=== PATIENT | female | born 1950 | race Caucasian/White ===

== ENCOUNTER 2019-03-11 00:59 | Outpatient (CLI) | payer MEDICARE, BC, SELFPAY ==
[2019-03-12 06:18] LABS: Hemoglobin A1C 5.8 % (4.5-6.2)
== END 2019-03-11 01:19 ==
DX: E78.5 Hyperlipidemia, unspecified (principal); I10 Essential (primary) hypertension; R73.09 Other abnormal glucose; R01.1 Cardiac murmur, unspecified
CPT/HCPCS: 36415; 83036

== ENCOUNTER 2019-03-21 16:01 | Outpatient (CLI) | payer MEDICARE, BC, SELFPAY ==
--- NOTE | 2019-03-21 15:28 | DI.RAD_ITS ---
SYMPTOMS/DIAGNOSIS: UPPER RESPIRATORY INFECTION, J06.9, COUGH, R05, LOW-GRADE FEVER, DECREASED AIRWAY CHEST X-RAY, PA AND LATERAL: No priors. The heart size and pulmonary vasculature are within normal limits. The lungs are clear. No effusions or pneumothoraces are identified. Age- related degenerative changes are seen in the spine. IMPRESSION: No acute pulmonary process.
== END 2019-03-21 16:21 ==
DX: J06.9 Acute upper respiratory infection, unspecified (principal); R05 Cough; R50.9 Fever, unspecified
CPT/HCPCS: 71046

== ENCOUNTER 2020-08-22 05:36 | Outpatient (CLI) | payer MEDICARE, BC, SELFPAY ==
[2020-08-22 13:33] LABS: CREATININE 0.79 mg/dL (0.55-1.02); Calculated LDL 92 mg/dL (<100); Cholesterol 192 mg/dL (<200); HDL Cholesterol 84 mg/dL (40-60); Potassium 4.2 mmol/L (3.5-5.1); Triglyceride 81 mg/dL (<150)
== END 2020-08-22 05:56 ==
PROVIDERS: Nurse Practitioner
DX: I10 Essential (primary) hypertension (principal); E78.5 Hyperlipidemia, unspecified
CPT/HCPCS: 36415; 80061; 82565; 84132

== ENCOUNTER 2020-12-30 09:46 | Observation (INO) | payer MEDICARE, BC, SELFPAY ==
[2020-12-30] VITALS (23 sets, daily range): BP systolic 116–159; BP diastolic 69–94; PULSE 62–92; RESP 15–31; TEMP 36.6–37.5; O2SAT 95–99
--- NOTE | 2020-12-30 09:45 | RT.EKG_ITS ---
APPROVED REPORT Exam: Resting ECG Patient Location: E HR:79 bpm ECG Measurements Heart Rate 79 AXIS OH 151 P 59 QRSd 93 QRS -32 QT 400 T 29 QTc 460 Conclusion Sinus rhythm...normal P axis, V-rate 60- 99 Left axis deviation...QRS axis (-30,-90) sinus rhythm at 79, left axis, nonspecific ST changes, no prior for comparison, no STEMI, nondiagnost ic EKG
--- NOTE | 2020-12-30 10:21 | DI.RAD_ITS ---
EXAM: XR PORTABLE CHEST AP CLINICAL HISTORY: chest pain TECHNIQUE: 2D digital imaging was performed. COMPARISON: No exams were available for comparison FINDINGS: MEDIASTINUM: Normal. HEART: Normal. PULMONARY VASCULATURE: Normal. LUNGS: Clear. PLEURAL SPACE: No pleural effusion or pneumothorax. BONE:Within normal limits for the patient's age. OTHER FINDINGS:Normal. IMPRESSION: No acute pulmonary findings. DATA REPOSITORY: RADIATION DOSE DELIVERED:
--- NOTE | 2020-12-30 10:25 | ED.GENADUL_ITS ---
Discharge Plan Disposition Condition: Stable Discharge Details Chief Complaint: Chest Pain Admit Date/Time: 12/30/20 14:25 Admit Provider: Lyndsay Weiner Attending Provider: Lyndsay Weiner Primary Care Provider: Birdie العلي ED Provider: Jacklyn Grimaldo Discharge Instructions Activity:: Activity as Tolerated Equipment/Supplies:: cardevent recorder 30 day Diet:: heart healthy Discharge Orders Discharge Orders: Discharge Order (Routine); Ordered 12/31/20 Ordered By: Cindy Dorantes Discharge Data Discharge Date/Time-TO BE ENTERED AT DEPARTURE: 12/30/20 14:59 Medical Decision Making Laurie Medina is a 70-year-old woman with a history of hyperlipidemia, hypertension, heart murmur who presented to the emergency department with chest pain that began at 330 this morning. On exam patient is well and nontoxic- appearing. 3/6 systolic murmur present, otherwise benign cardiopulmonary exam. Concern for acute coronary syndrome versus gastritis/GERD/other GI etiology, other. Low likelihood for pulmonary embolism. Exam/history at this time is not consistent with acute aortic pathology, sepsis, acute emergent intra-abdominal process. EKG shows nonspecific changes, no prior present for comparison, no STEMI. Plan for chest x-ray, screening labs, telemetry. Will monitor and reas sess. Labs reviewed and non-diagnostic. CXR negative. Will repeat trop. Repeat trop neg. Given risk factors, nature of pain, presence of significant heart murmur without apparent recent echo, plan for admission for further eval. Pt is amenable to plan. She remains asymptomatic. Clinical Impression: chest pain Disposition: [facility] in Medical Records Medical records reviewed: Yes I reviewed the patient's medical records. Imaging Data Radiologic Study: Attestation: I personally reviewed and interpreted this imaging study as follows: Radiologist's impression: EXAM: XR PORTABLE CHEST AP CLINICAL HISTORY: chest pain TECHNIQUE: 2D digital imaging was performed. COMPARISON: No exams were available for comparison FINDINGS: MEDIASTINUM: Normal. HEART: Normal. PULMONARY VASCULATURE: Normal. LUNGS: Clear. PLEURAL SPACE: No pleural effusion or pneumothorax. BONE:Within normal limits for the patient's age. OTHER FINDINGS:Normal. IMPRESSION: No acute pulmonary findings. Lab Data Lab results reviewed: Yes I reviewed the patient's lab results. ECG Data Attestation: I personally reviewed and interpreted this ECG (s) as follows: Interpretation: EKG shows sinus rhythm at 79, left axis, nonspecific ST changes, no prior for comparison, no STEMI, nondiagnostic EKG HPI General Mode of arrival: ambulatory . Date/Time Provider Initiated Documentation: 12/30/20 09:56 . Limitations to Documentation: no limitations . Information obtained by: patient, RN notes reviewed and old records reviewed . HPI Narrative: Laurie Weston is a 70-year-old woman with a history of hyperlipidemia, hypertension, heart murmur presenting to the emergency department with chest pain. Patient reports that she woke up at 330 this morning with a pressure sensation in her central chest. Patient reports that she got up out of bed and walk around and had improvement in her pain. Patient reports that she was able to go back to sleep. When she woke up this morning she had some continued pressure sensation in her central chest, also had some diarrhea, and had some nausea. Patient reports that symptoms have resolved and she feels at baseline right now. Patient reports that she has had no symptoms similar to this in the past including in the recent preceding days. Was previously in her usual state of health. She denies fever, cough, shortness of breath, vomiting, numbness, weakness. She has had no exertional symptoms. No recent change in appetite. Related Data Home Medications Medication Instructions Recorded Confirmed cholecalciferol (vitamin D3) 1,000 unit PO DAILY 04/19/13 12/30/20 loratadine 10 mg tablet 10 mg PO DAILY PRN 03/20/19 12/30/20 acyclovir 400 mg tablet 400 mg PO BID PRN #20 tab-cap 11/28/20 12/30/20 lisinopril 10 1 tab PO DAILY #90 tab-cap 11/28/20 12/30/20 mg-hydrochlorothiazide 12.5 mg tablet pravastatin 40 mg tablet 40 mg PO HS #90 tab-cap 11/28/20 12/30/20 sertraline 50 mg tablet 50 mg PO DAILY #30 tab 11/28/20 12/30/20 Previous Rx's Medication Instructions Recorded acyclovir 400 mg tablet 400 mg PO BID PRN #20 tab-cap 11/28/20 lisinopril 10 1 tab PO DAILY #90 tab-cap 11/28/20 mg-hydrochlorothiazide 12.5 mg tablet pravastatin 40 mg tablet 40 mg PO HS #90 tab-cap 11/28/20 sertraline 50 mg tablet 50 mg PO DAILY #30 tab 11/28/20 Allergies Allergy/AdvReac Type Severity Reaction Status Date / Time No Known Allergies Allergy Verified 12/30/20 09:58 General Stated Complaint: Chest Pain JOSEFA: 2 Review of Systems Narrative: Constitutional: denies fevers Eyes: denies eye pain ENT: denies ear pain, dental pain, sore throat Cardiovascular: denies edema, reports chest pain Respiratory: denies SOB, cough GI: denies abdominal pain, vomiting, reports nausea, diarrhea : denies flank pain MSK: denies back pain, neck pain, arthralgias, myalgias Skin: denies rash Neuro: denies headaches, numbness, weakness [facility] Medical History (Updated 12/31/20 @ 12:45 by Cindy Dorantes NP) Abnormal auditory perception (05/23/15) Depression with anxiety Encounter for annual physical exam (Unknown) Essential hypertension (10/16/13) Heart murmur (10/17/13) [place] [facility] [place] Herpes simplex oral Hyperlipidemia (10/10/12) Lipoma of back (11/01/14) scapula left, mri 2006 Presbycusis, bilateral (11/05/16) Skin lesion of neck Surgical History Bilateral salpingectomy with oophorectomy Endometrial Biopsy Fracture, Open Treatment RIGHT ANKLE Tooth extraction Margarito Forbes DDS tooth and bone removal 07/01/17 Family History Mother , AGE 66 Breast cancer Father , AGE 85 Diabetes Heart disease Sister No problems noted. Brother No problems noted. Son No problems noted. Maternal Grandfather No problems noted. Paternal Grandfather No problems noted. Maternal Grandfather No problems noted. Paternal Grandfather No problems noted. 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 Pets and animals: Yes (grand dogs stay occasionally) Pets and animals: dog(s) Sexually active: No Do you think of yourself as: straight/heterosexual Current gender identity: female What is your relationship status?: How often do you talk on the phone with friends or family?: three or more times per week How often do you get together with friends or relatives?: once per week How often do you attend caodaism or quaker services?: decline to answer Do you belong to any clubs or organized social groups?: no Panel score (0-1 are the most socially isolated patients): 2 What type of physical activity do you participate in: none Beba/Jew: None Special beba needs: No Seatbelt use: always Drive intox or ride w/intox pick up and delivery driver: No Do you feel safe at home: Yes Do you feel safe in your relationship?: Yes Victim of physical abuse: No Victim of emotional abuse: Yes Victim of sexual abuse: No Would you like helpful sources: Yes Exam Narrative Exam Narrative: Constitutional: well and [id number], pleasant, conversing normally HENT: head atraumatic/normocephalic/normal inspection, mucous membranes moist Eyes: conjunctiva normal, sclera normal, pupils 3mm b/l Neck: no stridor, normal ROM, trachea midline Chest: normal inspection, no tenderness to palpation Resp: normal work of breathing, LCTAB Cardio: normal rate, normal rhythm, 3/6 systolic murmur present GI: abdomen soft, non-tender, non-distended Back: normal inspection, no rash Skin: warm, dry, normal color, no rash Neuro: alert, not altered, grossly non-focal, normal tone Ext: no edema, no posterior calf tenderness to palpation Psych: normal mood, normal affect, normal behavior Course Vital Signs Vital signs: Vital Signs Temperature 36.7 C 12/30/20 09:51 Pulse 89 12/30/20 09:51 Respiratory Rate 18 12/30/20 09:51 Blood Pressure 159/94 H 12/30/20 09:51 Pulse Oximetry 96 12/30/20 09:51 Temperature 36.7 C 12/30/20 09:51 Temperature Source Tympanic 12/30/20 09:51 Pulse 89 12/30/20 09:51 Respiratory Rate 18 12/30/20 09:59 Respiratory Effort Non-Labored 12/30/20 09:59 Respiratory Depth Normal 12/30/20 09:59 Respiratory Pattern Normal 12/30/20 09:59 Blood Pressure 159/94 H 12/30/20 09:51 Blood Pressure Position Supine 12/30/20 09:51 Pulse Oximetry 96 12/30/20 09:51 Oxygen Delivery Method Room Air 12/30/20 09:51 Oxygen Flow Rate 0 12/30/20 09:51
[2020-12-30 10:41] LABS: Abs Immature Grans 0.05 10^3/uL (0.0-0.06); Absolute Basophil Count 0.05 10^3/uL (0.0-0.2); Absolute Lymphocyte Count 0.64 10^3/uL (1.2-3.4); Basophils % 0.3; Eosinophils % 1.1; HGB 13.6 g/dL (11.2-15.7); Immature Grans % 0.3; Lymphocytes % 4.1; MCH 30.9 pg (27.0-33.0); MCHC 33.2 % (32.0-36.0); MCV 93.2 fL (80-95); MPV 9.9 fL (8.0-11.0); Monocytes % 4.1; Neutrophils % 90.1; Nucleated RBC 0 %; Platelet Count 282 10^3/uL (130-400); RDW 12.2 % (11.7-14.6); RDW-SD 42.5 fL; WBC 15.72 10^3/uL (4.4-10.8)
[2020-12-30 10:43] LABS: Absolute Eosinophil Count 0.17 10^3/uL (0.0-0.7); Absolute Monocyte Count 0.64 10^3/uL (0.1-0.8); Absolute Neutrophil Count 14.16 10^3/uL (1.2-6.7)
[2020-12-30 11:06] LABS: ALT 29 U/L (14-59); AST 23 U/L (15-37); Albumin 3.9 g/dL (3.4-5.0); Alkaline Phosphatase 88 U/L (46-116); Anion Gap 7.8 mmol/L (3-11); BUN 12 mg/dL (7-18); Bilirubin, Total 0.7 mg/dL (0.2-1.0); CO2 30.2 mmol/L (21.0-32.0); CREATININE 0.8 mg/dL (0.55-1.02); Calcium 9.2 mg/dL (8.5-10.1); Chloride 102 mmol/L (98-107); Glucose 127 mg/dL (74-106); Magnesium 2.1 mg/dL (1.8-2.4); NT-proBNP 141 pg/mL (<300); Potassium 3.5 mmol/L (3.5-5.1); Sodium 140 mmol/L (136-145); Total Protein 7.5 g/dL (6.4-8.2); Troponin I < 0.05 ng/mL (<0.06)
[2020-12-30 11:09] LABS: Lipase 377 U/L (73-393)
[2020-12-30 11:10] LABS: D-Dimer 684 ng/mlFEU (<500)
[2020-12-30 14:01] LABS: Troponin I < 0.05 ng/mL (<0.06)
--- NOTE | 2020-12-30 14:38 | DI.US_ITS ---
APPROVED REPORT EXAM: Comprehensive 2D, Doppler, and color-flow Echocardiogram Patient Location: In-Patient Room/Bed: 215 Licensing Registration Examiner: Lorie Lugo RDCS (AE) Indications: Chest pain Other Information Study Quality: Good Conclusion Left Ventricle : The left ventricle is normal size. The left ventricular systolic function is normal. There is normal left ventricular wall thickness. There is normal LV segmental wall motion. LVEF is 55-58%. Right Ventricle : The right ventricle is normal size. The right ventricular systolic function is norm al. The RVSP is 35.7mmHg. Atria : The left atrium size is normal. The right atrium size is normal. Aortic Valve : Aortic valve is calcified. Aortic valve is trileaflet. Severe aortic stenosis. Peak ao rtic valve gradient is 72.6mmHg. Highest mean aortic valve gradient is 43.8mmHg. Calculated ELIZ by th e continuity equation is 1.11cm2. Trace aortic regurgitation. Mitral Valve : The mitral valve is normal in structure. Mild mitral regurgitation. No evidence of teodoro ral valve stenosis. Great Vessels : The aortic root is normal in size. The ascending aorta is mildly dilated. Aortic arch is normal in caliber. IVC is normal in size and collapses >50% with inspiration. There is no prior study available for comparison. Wall motion Left Ventricle The left ventricle is normal size. The left ventricular systolic function is normal. There is normal left ventricular wall thickness. There is normal LV segmental wall motion. The left ventricular diast olic function is normal. There is no ventricular septal defect visualized. LVEF is 55-58%. Right Ventricle The right ventricle is normal size. The right ventricular systolic function is normal. The RVSP is 35 .7mmHg. Atria The left atrium size is normal. The right atrium size is normal. The interatrial septum is intact wit h no evidence for an atrial septal defect. Aortic Valve Aortic valve is calcified. Aortic valve is trileaflet. Severe aortic stenosis. Peak aortic valve grad ient is 72.6mmHg. Highest mean aortic valve gradient is 43.8mmHg. Calculated ELIZ by the continuity eq uation is 1.11cm2. Trace aortic regurgitation. Mitral Valve The mitral valve is normal in structure. No evidence of mitral valve stenosis. Mild mitral regurgitat ion. Tricuspid Valve The tricuspid valve is normal in structure. There is no tricuspid valve stenosis. Trace tricuspid reg urgitation. Pulmonic Valve The pulmonary valve is normal in structure. There is no pulmonic valvular stenosis. Trace pulmonic re gurgitation. Great Vessels The aortic root is normal in size. The ascending aorta is mildly dilated. Aortic arch is normal in ca liber. IVC is normal in size and collapses >50% with inspiration. Pericardium There is no pericardial effusion. 2D Dimensions IVSD d PLAX 0.94 cm F: 0.6-1.0 LV Vol A2C d MOD 83.7 mL LVPW d PLAX 0.93 cm F: 0.6 - 1.0 LV Vol A4C d MOD 91.7 mL LVID d PLAX 4.26 cm F: 3.8 - 5.2 LA vol/ BSA A4C s A-L 21.5 mL/m2 LVDs 2.95 cm F: 2.2 - 3.5 LA Area A4C s MOD 13.78 cm2 Ao Root d 3.23 cm F: 2.7 - 3.3 LV EF A4C MOD 55.5 % RA Area A4C 11.54 cm2 LV EF A2C MOD 58.6 % RA Vol/ BSA A4C s A-L 13.6 mL/m2 LV EF Biplane MOD 57.7 % Ao Asc Diam d 3.47 cm F: 2.3 - 3.1 SV 51.41 mL LV EF Teichholz 57.1 % SV Index 30.37 mL/m2 LVEF (Preciado's) 57.73 % F: 54 - 74 LV Volume 70.83 mL F: 46 - 106 LV Volume Index 41.91 mL/m2 F: 29 - 61 LV Vol Biplane MOD 89.0 mL FS 29.65 % M-Mode TAPSE 1.76 cm (M/F) >1.7 LV Diastology MV E' medial 0.065 (>0.07 m/s) E/A Ratio 0.6 LV E/e MED 9.45 (<14) MV E Vmax 0.62 (0.4-1.3 m/s) MV E' lateral 0.071 (>0.1 m/s) MV A Vmax 1.10 (0.4-1.3 m/s) LV E/e LAT 8.65 (<14) MV E/A Ratio 0.55 MV E/E' medial 9.50 MV E/E' lateral 8.68 Aortic Valve LVOT Area 3.96 cm2 AoV Area Vmax 1.11 cm2 LVOT Vmax 1.20 m/s AoV Area/ BSA (Vmax) 0.66 cm2/m2 LVOT Mean Eliazar. 0.72 m/s ELIZ Mean Eliazar. 0.90 cm2 LVOT Peak Grad 5.7 mmHg ELIZ Mean Eliazar. Index 0.53 cm2/m2 LVOT Mean Grad 2.5 mmHg AR DT 1204 msec LVOT VTI 0.230 m AR PHT 349 msec LVOT Diam s 2.20 cm AoV Vmax 4.26 m/s Velocity Ratio 0.28 AoV Mean Eliazar. 3.16 m/s AoV Peak Grad 72.6 mmHg LVOT SV 91.03 mL AoV Mean Grad 43.8 mmHg AoV VTI 0.877 m AoV Area VTI 1.04 cm2 AoV Area/ BSA (VTI) 0.61 cm/m2 Mitral Valve MV DT 271 (160-240 msec) MV PHT 79 msec MV Area PHT 2.80 cm2 MV VTI 0.249 m MV Area VTI 3.66 (4.0-6.0 cm2) Pulmonary Valve PV Vmax 1.32 (0.5-1.5 m/s) RVOT Peak Gr. 1.68 mmHg PV Peak Grad 7.0 mmHg RVOT Mean Gr. 0.80 mmHg PV Mean Grad 3.3 mmHg RVOT VTI 0.132 m PV VTI 0.233 m RVOT Vmax 0.65 m/s Tricuspid Valve TR Peak Grad 32.7 mmHg TR Vmax 2.86 m/s RA Pressure 3.00 mmHg RVSP (TR) 35.7 mmHg
[2020-12-30] MEDS: Enoxaparin 40 MG/0.4 ML SYR SC (16:03)
[2020-12-30] MEDS: Normal Saline Flush 10 ML SYR IVP (16:03)
[2020-12-30] MEDS: Normal Saline 1,000 ML 100 ML IV (16:03)
--- NOTE | 2020-12-30 16:51 | HPE_ITS ---
Date of service: 12/30/20 Time of Service: 16:51 Assessment and Plan Assessment and plan (1) Chest pain: Start date: 12/30/20 Start time: 17:07 Status: Acute Assessment and plan: Onset at 3 am, ambulatory with CP, that stopped then continued. It was relieved upon arrival to ED. EKG without ST elevation ectopic beats, trops negative. she did receive echo today Wall motion Left Ventricle The left ventricle is normal size. The left ventricular systolic function is normal. The left ventricular ejection fraction is within the normal range. There is normal left ventricular wall thickness. There is normal LV segmental wall motion. There is no ventricular septal defect visualized. LVEF is 55-58%. Right Ventricle The right ventricle is normal size. The right ventricular systolic function is normal. The RVSP is 35.7mmHg. Atria The left atrium size is normal. The right atrium size is normal. The interatrial septum is intact with no evidence for an atrial septal defect. Aortic Valve Aortic valve is calcified. Aortic valve is trileaflet. Severe aortic stenosis. Peak aortic valve gradient is 72.6mmHg. Highest mean aortic valve gradient is 43.8mmHg. Calculated ELIZ by the continuity equation is 1.11cm2. Trace aortic regurgitation. Mitral Valve The mitral valve is normal in structure. No evidence of mitral valve stenosis. Mild mitral regurgitation. Tricuspid Valve The tricuspid valve is normal in structure. There is no tricuspid valve stenosis. Trace tricuspid regurgitation. Pulmonic Valve The pulmonary valve is normal in structure. There is no pulmonic valvular stenosis. Trace pulmonic regurgitation. Great Vessels The aortic root is normal in size. The ascending aorta is mildly dilated. Aortic arch is normal in caliber. IVC is normal in size and collapses >50% with inspiration. Pericardium There is no pericardial effusion On telemetry NPI stress for tomorrow Qualifiers: Chest pain type: unspecified Qualified Code(s): R07.9 - Chest pain, unspecified (2) Leukocytosis: Start date: 12/30/20 Start time: 17:09 Status: Acute Assessment and plan: Unknown source at this time. CXR without any abnormality. No u/a done in ED. u/a pending at this time. monitor repeat labs and treat if UTI. History of Present Illness History of Present Illness Chief Complaint: Chest pain, leukocytosis Narrative: 70-year-old woman with a history of hyperlipidemia, hypertension, heart murmur who presented to the emergency department with chest pain that began at 330 this morning with a pressure sensation in her central chest. She got up out of bed and walked around with improvement in her pain after that she was able to go back to sleep. When she woke up this morning she had some continued pressure sensation in her central chest, also had some diarrhea, and had some nausea. Since then symptoms have resolved and she feels at baseline right now. Patient reports that she has had no symptoms similar to this in the past including in the recent preceding days and she has been in her previously usual state of health. She denies fever, cough, shortness of breath, vomiting, numbness, weakness. She has had no exertional symptoms. No recent change in appetite no change in taste or smell. Labs in ED remarkable for WBC 15.72, ANC 14.62, otherwise unremarkable. EKG with SR no eptopic beats or ST elevation. Troponins negative. CXR with no acute findings. U/a not done in ED, will order one to r/o uti. She was asked to be admitted for further management. She is being to m/s obs with teley for further management. She will have an echo done today Wall motion Left Ventricle The left ventricle is normal size. The left ventricular systolic function is normal. The left ventricular ejection fraction is within the normal range. There is normal left ventricular wall thickness. There is normal LV segmental wall motion. There is no ventricular septal defect visualized. LVEF is 55-58%. Right Ventricle The right ventricle is normal size. The right ventricular systolic function is normal. The RVSP is 35.7mmHg. Atria The left atrium size is normal. The right atrium size is normal. The interatrial septum is intact with no evidence for an atrial septal defect. Aortic Valve Aortic valve is calcified. Aortic valve is trileaflet. Severe aortic stenosis. Peak aortic valve gradient is 72.6mmHg. Highest mean aortic valve gradient is 43.8mmHg. Calculated ELIZ by the continuity equation is 1.11cm2. Trace aortic regurgitation. Mitral Valve The mitral valve is normal in structure. No evidence of mitral valve stenosis. Mild mitral regurgitation. Tricuspid Valve The tricuspid valve is normal in structure. There is no tricuspid valve stenosis. Trace tricuspid regurgitation. Pulmonic Valve The pulmonary valve is normal in structure. There is no pulmonic valvular st enosis. Trace pulmonic regurgitation. Great Vessels The aortic root is normal in size. The ascending aorta is mildly dilated. Aortic arch is normal in caliber. IVC is normal in size and collapses >50% with inspiration. Pericardium There is no pericardial effusion.. stress for tomorrow. Will given IV hydration over night. 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 Brother No problems noted. Son No problems noted. Maternal Grandfather No problems noted. Paternal Grandfather No problems noted. Maternal Grandfather No problems noted. Paternal Grandfather No problems noted. Social History Smoking/Tobacco Use Status: Never Second Hand Exposure: Yes Smoking risk assessment performed?: Yes Alcohol Intake: never Drug use: Never Substance use type: does not use Counseling given: No Counseling provided: none Caregiver/Support person: No Household members: spouse Housing: house Communication Needs: Hard of Hearing Do you need help understanding health information?: Rarely current occupation: PART-TIME [employer] Pets and animals: Yes (grand dogs stay occasionally) Pets and animals: dog(s) Sexually active: No Do you think of yourself as: straight/heterosexual Current gender identity: female What is your relationship status?: How often do you talk on the phone with friends or family?: three or more times per week How often do you get together with friends or relatives?: once per week How often do you attend restorationism or scientology services?: decline to answer Do you belong to any clubs or organized social groups?: no Panel score (0-1 are the most socially isolated patients): 2 What type of physical activity do you participate in: none Beba/Yazidi: None Special beba needs: No Seatbelt use: always Drive intox or ride w/intox shuttle truck driver: No Do you feel safe at home: Yes Do you feel safe in your relationship?: Yes Victim of physical abuse: No Victim of emotional abuse: Yes Victim of sexual abuse: No Would you like helpful sources: Yes Meds Home Medications and Allergies Home Medications Medication Instructions Recorded Confirmed Type cholecalciferol (vitamin D3) 1,000 unit PO DAILY 04/19/13 12/30/20 History loratadine 10 mg tablet 10 mg PO DAILY PRN 03/20/19 12/30/20 History acyclovir 400 mg tablet 400 mg PO BID PRN #20 tab-cap 11/28/20 12/30/20 Rx lisinopril 10 1 tab PO DAILY #90 tab-cap 11/28/20 12/30/20 Rx mg-hydrochlorothiazide 12.5 mg tablet pravastatin 40 mg tablet 40 mg PO HS #90 tab-cap 11/28/20 12/30/20 Rx sertraline 50 mg tablet 50 mg PO DAILY #30 tab 11/28/20 12/30/20 Rx Allergies Allergy/AdvReac Type Severity Reaction Status Date / Time No Known Allergies Allergy Verified 12/30/20 09:58 Exam Narrative Exam Narrative: Constitutional: well and [id number], pleasant, conversing normally HENT: head atraumatic/normocephalic/normal inspection, mucous membranes moist Eyes: conjunctiva normal, sclera normal, pupils 3mm b/l Neck: no stridor, normal ROM, trachea midline Chest: normal inspection, no tenderness to palpation Resp: normal work of breathing, LCTAB Cardio: normal rate, normal rhythm, 3/6 systolic murmur present GI: abdomen soft, non-tender, non-distended Back: normal inspection, no rash Skin: warm, dry, normal color, no rash Neuro: alert, not altered, grossly non-focal, normal tone Ext: no edema, no posterior calf tenderness to palpation Psych: normal mood, normal affect, normal behavior Results Labs Result diagrams: 12/30/20 10:00 12/30/20 10:00 Labs: Laboratory Results - last 24 hr 12/30/20 12/30/20 12/30/20 10:00 10:00 10:00 WBC 15.72 H RBC 4.40 Hgb 13.6 Hct 41.0 MCV 93.2 MCH 30.9 MCHC 33.2 RDW 12.2 Plt Count 282 MPV 9.9 Immature Gran % 0.3 Neutrophils % 90.1 Lymphocytes % 4.1 Monocytes % 4.1 Eosinophils % 1.1 Basophils % 0.3 Nucleated RBC % 0 Absolute Neutrophils 14.16 H Absolute Lymphocytes 0.64 L Absolute Monocytes 0.64 Absolute Eosinophils 0.17 Absolute Basophils 0.05 D-Dimer 684 H Sodium 140 Potassium 3.5 Chloride 102 Carbon Dioxide 30.2 Anion Gap 7.8 BUN 12 Creatinine 0.8 Estimated GFR/1.73 m2 >= 60.00 Glucose 127 H Calcium 9.2 Magnesium 2.1 Total Bilirubin 0.7 AST 23 ALT 29 Alkaline Phosphatase 88 Troponin I < 0.05 NT-Pro-B Natriuret Pep 141 Total Protein 7.5 Albumin 3.9 Lipase SARS-CoV-2 (PCR) Nasopharyn COVID-19 PCR Ref Test Perform Site 12/30/20 12/30/20 12/30/20 10:00 13:20 14:33 WBC RBC Hgb Hct MCV MCH MCHC RDW Plt Count MPV Immature Gran % Neutrophils % Lymphocytes % Monocytes % Eosinophils % Basophils % Nucleated RBC % Absolute Neutrophils Absolute Lymphocytes Absolute Monocytes Absolute Eosinophils Absolute Basophils D-Dimer Sodium Potassium Chloride Carbon Dioxide Anion Gap BUN Creatinine Estimated GFR/1.73 m2 Glucose Calcium Magnesium Total Bilirubin AST ALT Alkaline Phosphatase Troponin I < 0.05 NT-Pro-B Natriuret Pep Total Protein Albumin Lipase 377 SARS-CoV-2 (PCR) Cancelled Nasopharyn COVID-19 PCR Cancelled Ref Test Perform Site Cancelled Last Vital Signs Temp 37.5 C 12/30/20 15:57 Pulse 75 12/30/20 15:57 Resp 18 12/30/20 15:57 BP 132/85 12/30/20 15:57 Pulse Ox 97 12/30/20 15:57 COVID-19 Screening Have you, or household traveled for leisure in last 14 days?: No Had IN PERSON contact w/suspected or confirmed C-19 person: No
[2020-12-30 17:26] LABS: C-Reactive Protein 0.92 mg/dL (0.0-0.3)
[2020-12-30 17:45] LABS: Procalcitonin < 0.1 ng/mL
[2020-12-30 18:29] LABS: Bilirubin Negative (Negative); Blood Trace-intact (Negative); Clarity Clear (Clear); Glucose Negative (Negative); Ketones Negative (Negative); Leukocyte Esterase Negative (Negative); Nitrite Negative (Negative); Specific Gravity 1.025 (1.005-1.025); Urobilinogen 0.2 EU/dL (Up TO 0.2); pH 8.5 (5-8)
[2020-12-30 18:40] LABS: Bacteria Negative HPF (Negative); C & S Indicated? No; Casts Negative LPF (Negative); Crystals Negative HPF (Negative); Epithelial Cells Few HPF (Negative); Mucus Negative (Negative); RBC 0-2 HPF (0-2)
[2020-12-30 19:55] LABS: Source Nasopharynx
[2020-12-30 20:06] LABS: COVID-19 PCR Negative (Negative); Influenza A PCR Negative (Negative); Influenza B PCR Negative (Negative); RSV PCR Negative (Negative)
[2020-12-30] MEDS: Pravastatin 40 MG TAB PO (22:06)
[2020-12-31 03:31] VITALS: BP 122/77; PULSE 82; RESP 17; TEMP 36.7; O2SAT 95
[2020-12-31 07:02] VITALS: PULSE 72
[2020-12-31 07:17] LABS: Abs Immature Grans 0.01 10^3/uL (0.0-0.06); Absolute Basophil Count 0.03 10^3/uL (0.0-0.2); Absolute Lymphocyte Count 1.07 10^3/uL (1.2-3.4); Absolute Monocyte Count 0.33 10^3/uL (0.1-0.8); Basophils % 0.4; Eosinophils % 5.6; HCT 41.7 % (36.0-46.0); HGB 13.5 g/dL (11.2-15.7); Immature Grans % 0.1; Lymphocytes % 15.1; MCH 30.2 pg (27.0-33.0); MCHC 32.4 % (32.0-36.0); MCV 93.3 fL (80-95); MPV 9.6 fL (8.0-11.0); Monocytes % 4.6; Neutrophils % 74.2; Nucleated RBC 0 %; Platelet Count 270 10^3/uL (130-400); RBC 4.47 10^6/uL (3.93-5.22); RDW 12.4 % (11.7-14.6); RDW-SD 42.7 fL
[2020-12-31 07:21] LABS: Absolute Neutrophil Count 5.27 10^3/uL (1.2-6.7)
[2020-12-31 07:30] VITALS: BP 136/89; PULSE 71; RESP 15; TEMP 36.4; O2SAT 93
[2020-12-31 07:36] LABS: BUN 11 mg/dL (7-18); CREATININE 0.8 mg/dL (0.55-1.02); Calcium 9.4 mg/dL (8.5-10.1); Calculated LDL 100 mg/dL (<100); Chloride 102 mmol/L (98-107); Cholesterol 213 mg/dL (<200); Glucose 110 mg/dL (74-106); HDL Cholesterol 90 mg/dL (40-60); Potassium 3.5 mmol/L (3.5-5.1); Sodium 140 mmol/L (136-145); Triglyceride 117 mg/dL (<150)
[2020-12-31 08:04] VITALS: BP 149/87; PULSE 77; RESP 18; TEMP 36.9; O2SAT 95
--- NOTE | 2020-12-31 08:52 | INITIAL_ITS ---
- If Service Date Differs Date of service: 12/30/20 Time of Service: 14:02 Care Management Initial Assess REASON FOR HOSPITALIZATION:: Chest pain, leukocytosis PAST MEDICAL HISTORY/PAST SURGICAL HISTORY:: abnormal auditory perception, depression with anxiety, essential hypertension, heart murmur, herpes simplex, hyperlipidemia, lipoma of back, presbycusis bilateral, skin lesion of neck, bilateral salpingectomy with oophrectomy, endometrial biopsy, fracture, tooth extraction PREVIOUS FUNCTIONAL STATUS/SOCIAL/FAMILY SUPPORTS:: Laurie resides in [place] with her , Manav. The couple has one adult son who resides locally and is supportive. Laurie is retired, and independent at baseline in the community. CURRENT FUNCTIONAL STATUS:: Laurie is preparing for discharge. ADVANCE DIRECTIVES:: , Manav as agent, son, Pedrito as alternate. Has patient been provided with info about the portal/API?: Yes Did the patient sign up for the portal?: No CODE STATUS:: Full Code INSURANCE COVERAGE / FINANCIAL ISSUES:: Medicare, BC/BS CURRENT HOME/COMMUNITY SERVICES/EQUIPMENT:: No current services or equipment. PRIMARY CARE PHYSICIAN:: Birdie العلي NP: [facility] POTENTIAL DISCHARGE NEEDS:: Follow up appointments with community based providers, [facility] [place]. PATIENT/FAMILY EDUCATION NEEDS:: Review discharge instructions, discuss Ask Me Three. ANTICIPATED BARRIERS TO DISCHARGE:: None identified at this time. TRANSPORTATION:: Via private vehicle with family. PLAN:: Laurie will return home when ready per MD. She will follow up with her PCP and plan of care as prescribed including [facility] [place].
[2020-12-31] MEDS: Cholecalciferol (Vitamin D3) 1,000 UNIT TAB 1000 UNITS PO (10:20)
[2020-12-31] MEDS: hydroCHLOROthiazide 12.5 MG TAB PO (10:20)
[2020-12-31] MEDS: Lisinopril 10 MG TAB PO (10:21)
[2020-12-31] MEDS: Sertraline 50 MG TAB PO (10:21)
[2020-12-31] MEDS: Omeprazole 20 MG CAPCR PO (10:21)
[2020-12-31] MEDS: Normal Saline Flush 10 ML SYR IVP (10:22)
[2020-12-31 11:21] VITALS: BP 161/93; PULSE 72; RESP 16; TEMP 36.8; O2SAT 98
[2020-12-31 11:40] LABS: Troponin I < 0.05 ng/mL (<0.06)
--- NOTE | 2020-12-31 12:38 | DSE_ITS ---
Date of service: 12/31/20 Time of Service: 12:38 DS: Diagnosis Discharge Diagnosis (1) Chest pain: Status: Acute (2) Leukocytosis: Status: Acute Discharge Plan Disposition Patient Disposition: HOME Condition: Stable Discharge Details Reason For Visit: CHEST PAIN, LEUKOCYTOSIS Admit Date/Time: 12/30/20 14:25 Admit Provider: Lyndsay Weiner Attending Provider: Lyndsay Weiner Primary Care Provider: Birdie العلي Hospital Course Hospital Course: This is a 70-year-old woman with a history of hyperlipidemia, hypertension, heart murmur who presented to the emergency department with chest pain described as a pressure sensation in her central chest. She had improvement in her pain with sitting upright and with ambulation and after that she was able to go back to sleep. When she woke up this morning she had some continued pressure sensation in her central chest, also had some diarrhea, and had some nausea. Her symptoms resolved and she felt at baseline on presentation. Her cardiac work up in the ED was unremarkable, with negative troponin, no EKG changes. She was referred to observation for formal rule out and stress test. Serial troponin remains negative but echocardiogram shows severe aortic stenosis with a peak aortic valve gradient of 72.6mmHg. Cardiology was consulted and recommendations are for valve evaluation which can be done as an outpatient, stress testing discontinued as she will undergo cardiac catheterization accordingly. Also, coincidental finding of microscopic hematuria on UA which should be followed up outpatient by pcp. she had episode of SVT prior to discharge and was discharged on a cardiac event recorder. she will be scheduled to follow up with Dr Arroyo as discussed. discharge plan discussed with DR Weiner Home Meds and New Rx's Prescriptions: Continued acyclovir 400 mg tablet 400 mg PO BID PRN (Reason: cold sores) Qty: 20 RF: 4 lisinopril-hydrochlorothiazide [Zestoretic] 10-12.5 mg tablet 1 tab PO DAILY Qty: 90 RF: 4 pravastatin [Pravachol] 40 mg tablet 40 mg PO HS Qty: 90 RF: 4 sertraline 50 mg tablet 50 mg PO DAILY Qty: 30 RF: 3 cholecalciferol (vitamin D3) 1,000 UNIT capsule 1,000 unit PO DAILY RF: 0 loratadine [Allergy Relief (loratadine)] 10 mg tablet 10 mg PO DAILY PRNRF: 0 Discharge Instructions Instructions: Chest Pain (DC), Aortic Stenosis (DC) Additional Instructions: continue your usual medication as directed wear your event recorder as directed Stand Alone Forms: Nursing Discharge Form Referrals: Benny Cisneros MD [ CONSULTING PHYSICIAN] - 01/23/21 2:00 pm Activity:: Activity as Tolerated Equipment/Supplies:: cardevent recorder 30 day Diet:: heart healthy Discharge Orders Discharge Orders: Discharge Order (Routine); Ordered 12/31/20 Ordered By: Cindy Dorantes Other Ambulatory Orders: Cardiac Event Recorder (Outpt) (ONCE) Location: None Selected Ordered By: Cindy Dorantes Discharge Data Discharge Date/Time-TO BE ENTERED AT DEPARTURE: 12/31/20 14:35 DS: Summary Time Spent with Patient providing and/or coordinating discharge services: Greater than 30 minutes Status at Discharge Functional status at discharge: independent ambulation Overall status at discharge: patient is back to baseline Mental Status: mental status grossly normal Speech and Movement: speech and movement normal Mood: congruent mood Affect: normal affect Exam Const General: cooperative, healthy appearing, comfortable, no acute distress and well groomed Nutritional Appearance: thin Orientation: alert, awake and oriented x3 HENMT Head: normal to inspection, normocephalic and atraumatic Mouth: oral mucosae normal Chest Chest: normal inspection of the chest Resp Auscultation: clear to auscultation bilaterally Cardio Rate: regular rate Rhythm: regular rhythm Heart Sounds: murmur systolic III/ and IV/ GI Inspection: normal to inspection Palpation: soft Skin General skin exam: no rashes or lesions noted Neuro General: patient alert, patient awake, patient oriented x3 and moves all extremities Extrem General: normal to inspection and no pedal edema Psych Mental Status: mental status grossly normal Speech and Movement: speech and movement normal Mood: congruent mood Affect: normal affect DS: Data Vitals/I&O Vitals and I&O: Vital Signs Temperature 36.8 C 12/31/20 11:21 Temperature Source Skin 12/31/20 11:21 Pulse 72 12/31/20 11:21 Pulse Rhythm Regular 12/31/20 04:04 Pulse 87 12/30/20 11:31 Respiratory Rate 16 12/31/20 11:21 Respiratory Effort 12/31/20 08:44 Respiratory Depth Normal 12/31/20 08:44 Respiratory Pattern Normal 12/31/20 08:44 Blood Pressure 161/93 H 12/31/20 11:21 Blood Pressure Mean 95 12/30/20 11:31 Blood Pressure Position Supine 12/30/20 09:51 Pulse Oximetry 98 12/31/20 11:21 Oxygen Delivery Method Room Air 12/31/20 11:21 Oxygen Flow Rate 0 12/31/20 11:21 Pain Level 0 12/31/20 10:22 Intake & Output 12/30/20 12/31/20 12/31/20 23:59 11:59 23:59 Intake Total 193.333 / 193.333 325 / 325 Output Total 750 / 750 Balance 193.333 / 193.333 -425 / -425 Intake: IV 193.333 / 193.333 Oral 0 / 0 325 / 325 Output: Urine 750 / 750 Other: Urine Color Dark Letty Urine Appearance Clear Clear Urine Odor Normal Stool Occult Blood Negative Stool Size Small Stool Characteristics Soft Formed Voiding Methods Toilet Data Completed and Pending Labs on day of discharge: Labs from last 24 hours 12/31/20 12/31/20 12/31/20 06:55 06:55 06:55 WBC 7.10 D RBC 4.47 Hgb 13.5 Hct 41.7 MCV 93.3 MCH 30.2 MCHC 32.4 RDW 12.4 Plt Count 270 MPV 9.6 Immature Gran % 0.1 Neutrophils % 74.2 Lymphocytes % 15.1 Monocytes % 4.6 Eosinophils % 5.6 Basophils % 0.4 Nucleated RBC % 0 Absolute Neutrophils 5.27 Absolute Lymphocytes 1.07 L Absolute Monocytes 0.33 Absolute Eosinophils 0.40 Absolute Basophils 0.03 Sodium 140 Potassium 3.5 Chloride 102 Carbon Dioxide 31.0 Anion Gap 7.0 BUN 11 Creatinine 0.8 Estimated GFR/1.73 m2 >= 60.00 Glucose 110 H Calcium 9.4 Troponin I < 0.05 C-Reactive Protein Triglycerides 117 Total Cholesterol 213 H LDL Cholesterol, Calc 100 HDL Cholesterol 90 Procalcitonin Urine Color Urine Clarity Urine pH Ur Specific [place] Urine Protein Urine Ketones Urine Blood Urine Nitrite Urine Bilirubin Urine Urobilinogen Ur Leukocyte Esterase Urine RBC Urine WBC Ur Epithelial Cells Urine Crystals Urine Bacteria Urine Casts Urine Mucus Ur Culture Indicated? Urine Glucose COVID-19 Source SARS-CoV-2 (PCR) Nasopharyn COVID-19 PCR Influenza Type A (PCR) Influenza Type B (PCR) RSV (PCR) Ref Test Perform Site 12/30/20 12/30/20 12/30/20 19:10 18:50 18:15 WBC RBC Hgb Hct MCV MCH MCHC RDW Plt Count MPV Immature Gran % Neutrophils % Lymphocytes % Monocytes % Eosinophils % Basophils % Nucleated RBC % Absolute Neutrophils Absolute Lymphocytes Absolute Monocytes Absolute Eosinophils Absolute Basophils Sodium Potassium Chloride Carbon Dioxide Anion Gap BUN Creatinine Estimated GFR/1.73 m2 Glucose Calcium Troponin I C-Reactive Protein Triglycerides Total Cholesterol LDL Cholesterol, Calc HDL Cholesterol Procalcitonin Urine Color Yellow Urine Clarity Clear Urine pH 8.5 H Ur Specific [place] 1.025 Urine Protein Negative Urine Ketones Negative Urine Blood Trace-intact H Urine Nitrite Negative Urine Bilirubin Negative Urine Urobilinogen 0.2 Ur Leukocyte Esterase Negative Urine RBC 0-2 Urine WBC 3-5 Ur Epithelial Cells Few Urine Crystals Negative Urine Bacteria Negative Urine Casts Negative Urine Mucus Negative Ur Culture Indicated? No Urine Glucose Negative COVID-19 Source Nasopharynx SARS-CoV-2 (PCR) Cancelled Negative Nasopharyn COVID-19 PCR Cancelled Influenza Type A (PCR) Negative Influenza Type B (PCR) Negative RSV (PCR) Negative Ref Test Perform Site Cancelled 12/30/20 12/30/20 12/30/20 16:10 14:53 14:33 WBC RBC Hgb Hct MCV MCH MCHC RDW Plt Count MPV Immature Gran % Neutrophils % Lymphocytes % Monocytes % Eosinophils % Basophils % Nucleated RBC % Absolute Neutrophils Absolute Lymphocytes Absolute Monocytes Absolute Eosinophils Absolute Basophils Sodium Potassium Chloride Carbon Dioxide Anion Gap BUN Creatinine Estimated GFR/1.73 m2 Glucose Calcium Troponin I C-Reactive Protein Triglycerides Total Cholesterol LDL Cholesterol, Calc HDL Cholesterol Procalcitonin Urine Color Urine Clarity Urine pH Ur Specific [place] Urine Protein Urine Ketones Urine Blood Urine Nitrite Urine Bilirubin Urine Urobilinogen Ur Leukocyte Esterase Urine RBC Urine WBC Ur Epithelial Cells Urine Crystals Urine Bacteria Urine Casts Urine Mucus Ur Culture Indicated? Urine Glucose COVID-19 Source Cancelled SARS-CoV-2 (PCR) Cancelled Cancelled Cancelled Nasopharyn COVID-19 PCR Cancelled Cancelled Influenza Type A (PCR) Cancelled Influenza Type B (PCR) Cancelled RSV (PCR) Cancelled Ref Test Perform Site Cancelled Cancelled 12/30/20 12/30/20 13:20 13:20 WBC RBC Hgb Hct MCV MCH MCHC RDW Plt Count MPV Immature Gran % Neutrophils % Lymphocytes % Monocytes % Eosinophils % Basophils % Nucleated RBC % Absolute Neutrophils Absolute Lymphocytes Absolute Monocytes Absolute Eosinophils Absolute Basophils Sodium Potassium Chloride Carbon Dioxide Anion Gap BUN Creatinine Estimated GFR/1.73 m2 Glucose Calcium Troponin I < 0.05 C-Reactive Protein 0.92 H Triglycerides Total Cholesterol LDL Cholesterol, Calc HDL Cholesterol Procalcitonin < 0.1 Urine Color Urine Clarity Urine pH Ur Specific [place] Urine Protein Urine Ketones Urine Blood Urine Nitrite Urine Bilirubin Urine Urobilinogen Ur Leukocyte Esterase Urine RBC Urine WBC Ur Epithelial Cells Urine Crystals Urine Bacteria Urine Casts Urine Mucus Ur Culture Indicated? Urine Glucose COVID-19 Source SARS-CoV-2 (PCR) Nasopharyn COVID-19 PCR Influenza Type A (PCR) Influenza Type B (PCR) RSV (PCR) Ref Test Perform Site [facility] Medical History (Updated 12/31/20 @ 12:45 by Cindy Dorantes NP) Abnormal auditory perception (05/23/15) Depression with anxiety Encounter for annual physical exam (Unknown) Essential hypertension (10/16/13) Heart murmur (10/17/13) echo 2013 [facility] [place], mild Herpes simplex oral Hyperlipidemia (10/10/12) Lipoma of back (11/01/14) scapula left, mri 2006 Presbycusis, bilateral (11/05/16) Skin lesion of neck Surgical History Bilateral salpingectomy with oophorectomy Endometrial Biopsy Fracture, Open Treatment RIGHT ANKLE Tooth extraction Margarito Forbes DDS tooth and bone removal 07/01/17 Family History Mother , AGE 66 Breast cancer Father , AGE 85 Diabetes Heart disease Sister No problems noted. Brother No problems noted. Son No problems noted. Maternal Grandfather No problems noted. Paternal Grandfather No problems noted. Maternal Grandfather No problems noted. Paternal Grandfather No problems noted. 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 Pets and animals: Yes (grand dogs stay occasionally) Pets and animals: dog(s) Sexually active: No Do you think of yourself as: straight/heterosexual Current gender identity: female What is your relationship status?: How often do you talk on the phone with friends or family?: three or more times per week How often do you get together with friends or relatives?: once per week How often do you attend spiritism or denominational services?: decline to answer Do you belong to any clubs or organized social groups?: no Panel score (0-1 are the most socially isolated patients): 2 What type of physical activity do you participate in: none Beba/Restoration: None Special beba needs: No Seatbelt use: always 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
--- NOTE | 2020-12-31 12:58 | CMDISCH_ITS ---
LACE Index Scoring Tool - Questions: Length of Stay (in days): 1 Acuity (Admit via E.D.?): Yes E.D. Visits: 1 - Answers: Total Score: 5 Risk of Readmission: Low Risk Care Management Discharge Reason for Hospitalization: Chest pain, leukocytosis Discharge Plan: Laurie will return home when ready per MD. She will follow up with her PCP and plan of care as prescribed including [facility] Cardiology follow up appointment. She will transport via private vehicle with her family. Patient/Family Education Needs: Review discharge instructions, discuss Ask Me Three.
--- NOTE | 2021-01-18 16:32 | RESPIRATORY ---
01/18/2021 4:34pm: Spoke to Dr. Morales regarding this pt's Cardiac Report . Read out of Afib RVR sustained, Sinus Rhythm with Atrial Run. Dr. Morales will reach out to Pt.
== END 2020-12-31 14:35 | disposition home or self-care (01) ==
LOC: ER 14:28 → MS 14:53
PROVIDERS: Nurse Practitioner Acute Care; Nurse Practitioner Family; Admitting Provider Internal Medicine; Emergency Provider Student in an Organized Health Care Education/Training Program; Visit Provider Internal Medicine
DX: R07.9 Chest pain, unspecified (principal); D72.829 Elevated white blood cell count, unspecified; I10 Essential (primary) hypertension; E78.5 Hyperlipidemia, unspecified; F41.8 Other specified anxiety disorders
CPT/HCPCS: 36410; 36415; 80048; 80053; 80061; 83690; 84145; 87635; 93005; 93270; 93306; 99217; 99220; 99285; J1650; U0003; 71045; 81003; 81015; 83735; 83880; 84484; 85025; 85379; 86140; 93010; G0378

== ENCOUNTER 2021-01-23 13:29 | Outpatient (CLI) | payer MEDICARE, BC, SELFPAY ==
--- NOTE | 2021-01-23 14:00 | RT.EKG_ITS ---
APPROVED REPORT Exam: Resting ECG Patient Location: O HR:107 bpm ECG Measurements Heart Rate 107 AXIS MI 137 P 44 QRSd 85 QRS -34 QT 340 T 198 QTc 454 Conclusion Sinus tachycardia...rate> 99 Left axis deviation...QRS axis (-30,-90) Consider right ventricular hypertrophy...large R or R' V1/V2 Nonspecific T abnrm, anterolateral leads...T <-0.10mV, I aVL V2-V6 Baseline wander in lead(s) I,II,aVR,aVL,aVF
--- NOTE | 2021-02-11 13:07 | W.CARDEVENT ---
Date of service: 02/11/21 Time of Service: 13:07 Cardiac Event Recorder Referring Provider:: Bri Indications:: chest pain Cardiac Event Note: This is a 30-day monitor order for indication of chest pain. ?Patient was in normal sinus rhythm for the majority of the recording with an average heart rate of 80 bpm. ?There were 22 automatically triggered events all associated with supraventricular tachycardia and PACs. ?The one patient triggered event was associated with sinus rhythm ?There were no episodes of atrial fibrillation, no pauses greater than 3 seconds no evidence of high degree heart block.
== END 2021-01-23 13:30 | disposition home or self-care (01) ==
LOC: DI.CARD 14:08
PROVIDERS: Visit Provider Internal Medicine Cardiovascular Disease
DX: R00.0 Tachycardia, unspecified (principal)
CPT/HCPCS: 93005; 93010

== ENCOUNTER → 2021-01-23 13:29 | Outpatient (BNVA) | payer MEDICARE, BC, SELFPAY | PROVIDERS: Visit Provider Internal Medicine Cardiovascular Disease | DX: I35.0 Nonrheumatic aortic (valve) stenosis (principal); I47.1 Supraventricular tachycardia; R07.89 Other chest pain; I10 Essential (primary) hypertension | CPT/HCPCS: 93005; 93010; 99214 ==

== ENCOUNTER 2021-02-03 04:08 | Emergency (ER) | payer MEDICARE, BC, SELFPAY ==
[2021-02-03] VITALS (27 sets, daily range): BP systolic 107–148; BP diastolic 67–91; PULSE 57–76; RESP 14–24; TEMP 36.4; O2SAT 95–99
--- NOTE | 2021-02-03 04:00 | RT.EKG_ITS ---
APPROVED REPORT Exam: Resting ECG Patient Location: E HR:73 bpm ECG Measurements Heart Rate 73 AXIS DC 173 P 53 QRSd 92 QRS -27 QT 408 T 16 QTc 448 Conclusion Sinus rhythm...normal P axis, V-rate 60- 99
--- NOTE | 2021-02-03 04:15 | DI.RAD_ITS ---
EXAM: XR CHEST 2V PA LATERAL CLINICAL HISTORY: chest pain. TECHNIQUE: 2D digital imaging was performed. COMPARISON: Chest x-ray 12/30/2020 FINDINGS: Heart size is unchanged. The mediastinum is not widened. Hyperinflation again noted but no new infiltrates nor pleural effusions. No pulmonary edema. No pne umothorax IMPRESSION: No acute pulmonary findings.No significant change from 12/30/2020 DATA REPOSITORY: RADIATION DOSE DELIVERED:
--- NOTE | 2021-02-03 04:18 | ED.GENADUL_ITS ---
Discharge Plan Disposition Patient Disposition: HOME Condition: Stable Discharge Details Clinical Impression: Chest pain, Elevated LFTs Primary Care Provider: Birdie العلي ED Provider: Jacklyn Grimaldo Home Meds and New Rx's Prescriptions: Continued metoprolol succinate 25 mg tablet extended release 24 hr 25 mg PO DAILY Qty: 90 RF: 3 acyclovir 400 mg tablet 400 mg PO BID PRN (Reason: cold sores) Qty: 20 RF: 4 lisinopril-hydrochlorothiazide [Zestoretic] 10-12.5 mg tablet 1 tab PO DAILY Qty: 90 RF: 4 pravastatin [Pravachol] 40 mg tablet 40 mg PO HS Qty: 90 RF: 4 sertraline 50 mg tablet 50 mg PO DAILY Qty: 30 RF: 3 cholecalciferol (vitamin D3) 1,000 UNIT capsule 1,000 unit PO DAILY RF: 0 loratadine [Allergy Relief (loratadine)] 10 mg tablet 10 mg PO DAILY PRNRF: 0 Discharge Instructions Instructions: Chest Pain (ED) Additional Instructions: Your testing at this time is reassuring and we discussed the case with the car diology team at [facility] who are going to try to see you sooner to begin tests needed prior to your valve replacement Please return immediately to the emergency department if you develop any new or worsening symptoms, if your condition does not improve as expected, or if you become otherwise concerned. It is extremely important that you call soon as possible to make an appointment to be seen in follow-up for this visit by your primary care doctor and cardiology at [facility] as we discussed. Referrals: Birdie العلي NP [Primary Care Provider] - Benny Cisneros MD [MD CONSULTING PHYSICIAN] - Discharge Data Discharge Date/Time-TO BE ENTERED AT DEPARTURE: 02/03/21 10:47 Medical Decision Making <Ken Lopez MD - Last Filed: 02/03/21 06:53> 70 yo female with hx of htn, hld, severe aortic stenosis seen on echo when she was admitted last month for chest pain comes in after she had ten minutes of chest tightness and states she didn't feel right. She has been having intermittent episodes of chest tightness and was admitted last month for chest pain and plan was to have a stress test. She had the echo that showed severe and after consult with cardiology it was decided to defer stress testing as she would have catheterization for preop planning for aortic valve replacement. Today she woke up with sleep not feeling well and had the chest tightness so her brought her here. She denies diaphoresis, vomit, abdominal pain. She has no pain now and states she feels better now. She has clear lungs, loud systolic murmur, no jvd or leg swelling or calf pain. Pain could be due to underlying coronary artery disease, will obtain troponin. She has no hypoxia, tachycardia, no evidence of dvt on exam so doubt PE. No tearing back pain and normal vascular exam so doubt dissection. Pt remains stable and labs unremarkable other than her ast and alt are increased which is new for her. Given her continued intermittent chest pain and now elevated lft's will obtain imaging of the chest/abd/pevis to evaluate for other causes of her pain such as pneumonitis, gallstones and cholecystitis though unlikely given no cam's sign on exam. pt remains stable without complaints. Waiting on results of CT. I did discuss her case with Dr. Leyva from cardiology at [facility] who did not feel patient required emergent/urgent stress testing given lack of pain here and doesn't feel she requires transfer. He feels that she can be discharged if pain free here and unchanged ekg/delta troponin. Discussed this with the patient and she is comfortable going home if repeat ekg and troponin are unchanged. Dr. Leyva is going to try and get her in to their clinic as soon as possible for her preop testing for her aortic valve repair ct shows possible gastritis, has no epigastric pain and denies pain with eating sodoubt this is the cause of her symptoms. Still has no symptoms now and feels well. pt remains asymptomatic, will be signed out to oncoming provider pending repeat ekg and troponin, if unchanged and pain free can be d/c'd with cardiology f/u Differential Diagnosis Differential Diagnosis: nstemi, esophageal spasm, aortic stenosis Medical Records Medical records reviewed: Yes I reviewed the patient's medical records. Imaging Data Radiologic Study: Attestation: I personally reviewed and interpreted this imaging study as follows: Imaging: X-Ray Radiologist's impression: IMPRESSION: Hyperinflation compatible with COPD. Radiologic Study #2: Attestation: I personally reviewed and interpreted this imaging study as follows: Imaging: CT Scan Radiologist's impression: IMPRESSION: no acute findings in the chest Gastric wall thickening reflecting underdistention versus gastritis Lab Data Lab results reviewed: Yes I reviewed the patient's lab results. ECG Data Attestation: I personally reviewed and interpreted this ECG (s) as follows: Prior ECG tracings: available for review Interpretation: sinus rhythm, rate of 73, pr 173, qtc 448 <Jacklyn Grimaldo MD - Last Filed: 02/13/21 09:05> Laurie Weston is a 70 y/o woman who presents emergency department for chest tightness; she is signed out to me at time of shift change with repeat EKG and troponin pending. On my assessment patient reports that she is symptom-free and feels very well. Patient states that she feels ready to go home. Repeat EKG unchanged from prior. Repeat troponin negative. I did discuss patient presentation results with Dr. Murguia of cardiology, who states no further emergent intervention indicated at this time, patient should be sure to follow-up with cardiology at [facility] regarding valve repair. I had a lengthy discussion with Patient regarding return to emergency department precautions, home care, and importance of outpatient follow-up. Pt verbalizes understanding of the plan and is amenable. Patient discharged to home with clear plan for outpatient follow- up. All questions were answered. Disposition decision was made weighing the risks and benefits of hospitalization versus outpatient treatment, the risk for further decompensation, and the patient's wishes. Medical Records Medical records reviewed: Yes I reviewed the patient's medical records. Lab Data Lab results reviewed: Yes I reviewed the patient's lab results. Labs: Laboratory Tests Range/Units 02/03/21 02/03/21 02/03/21 04:22 04:22 04:22 WBC (4.4-10.8) 10^3/uL 4.62 RBC (3.93-5.22) 10^6/uL 4.17 Hgb (11.2-15.7) g/dL 12.9 Hct (36.0-46.0) % 38.4 MCV (80-95) fL 92.1 MCH (27.0-33.0) pg 30.9 MCHC (32.0-36.0) % 33.6 RDW (11.7-14.6) % 11.9 Plt Count (130-400) 10^3/uL 230 MPV (8.0-11.0) fL 9.7 Immature Gran % 0.0 Neutrophils % 55.9 Lymphocytes % 21.6 Monocytes % 9.3 Eosinophils % 11.9 Basophils % 1.3 Nucleated RBC % % 0 Absolute Neutrophils (1.2-6.7) 10^3/uL 2.58 Absolute Lymphocytes (1.2-3.4) 10^3/uL 1.00 L Absolute Monocytes (0.1-0.8) 10^3/uL 0.43 Absolute Eosinophils (0.0-0.7) 10^3/uL 0.55 Absolute Basophils (0.0-0.2) 10^3/uL 0.06 PT (9.3-11.0) sec INR (0.9-1.1) APTT (21.0-27.5) sec Sodium (136-145) mmol/L 141 Potassium (3.5-5.1) mmol/L 3.5 Chloride (98-107) mmol/L 101 Carbon Dioxide (21.0-32.0) mmol/L 30.3 Anion Gap (3-11) mmol/L 9.7 BUN (7-18) mg/dL 14 Creatinine (0.55-1.02) mg/dL 0.9 Estimated GFR/1.73 m2 (mL/min/1.73m2) >= 60.00 Glucose (74-106) mg/dL 106 Calcium (8.5-10.1) mg/dL 8.9 Magnesium (1.8-2.4) mg/dL 2.3 Total Bilirubin (0.2-1.0) mg/dL 0.2 0.2 Conjugated Bilirubin (0.0-0.2) mg/dL 0.1 AST (15-37) U/L 158 H ALT (14-59) U/L 150 H Alkaline Phosphatase (46-116) U/L 86 Troponin I (<0.06) ng/mL < 0.05 Total Protein (6.4-8.2) g/dL 7.0 Albumin (3.4-5.0) g/dL 3.7 Lipase (73-393) U/L 177 COVID-19 Source SARS-CoV-2 (PCR) Hepatitis A IgM Ab (Negative) Hep Bs Antigen (Negative) Hep B Core Total Ab (Negative) Hepatitis C Antibody (Negative) Influenza Type A (PCR) Influenza Type B (PCR) RSV (PCR) Range/Units 02/03/21 02/03/21 02/03/21 04:22 04:22 05:19 WBC (4.4-10.8) 10^3/uL RBC (3.93-5.22) 10^6/uL Hgb (11.2-15.7) g/dL Hct (36.0-46.0) % MCV (80-95) fL MCH (27.0-33.0) pg MCHC (32.0-36.0) % RDW (11.7-14.6) % Plt Count (130-400) 10^3/uL MPV (8.0-11.0) fL Immature Gran % Neutrophils % Lymphocytes % Monocytes % Eosinophils % Basophils % Nucleated RBC % % Absolute Neutrophils (1.2-6.7) 10^3/uL Absolute Lymphocytes (1.2-3.4) 10^3/uL Absolute Monocytes (0.1-0.8) 10^3/uL Absolute Eosinophils (0.0-0.7) 10^3/uL Absolute Basophils (0.0-0.2) 10^3/uL PT (9.3-11.0) sec 9.7 INR (0.9-1.1) 1.0 APTT (21.0-27.5) sec 23.9 Sodium (136-145) mmol/L Potassium (3.5-5.1) mmol/L Chloride (98-107) mmol/L Carbon Dioxide (21.0-32.0) mmol/L Anion Gap (3-11) mmol/L BUN (7-18) mg/dL Creatinine (0.55-1.02) mg/dL Estimated GFR/1.73 m2 (mL/min/1.73m2) Glucose (74-106) mg/dL Calcium (8.5-10.1) mg/dL Magnesium (1.8-2.4) mg/dL Total Bilirubin (0.2-1.0) mg/dL Conjugated Bilirubin (0.0-0.2) mg/dL AST (15-37) U/L ALT (14-59) U/L Alkaline Phosphatase (46-116) U/L Troponin I (<0.06) ng/mL Total Protein (6.4-8.2) g/dL Albumin (3.4-5.0) g/dL Lipase (73-393) U/L COVID-19 Source Cancelled SARS-CoV-2 (PCR) Cancelled Hepatitis A IgM Ab (Negative) Negative Hep Bs Antigen (Negative) Negative Hep B Core Total Ab (Negative) Negative Hepatitis C Antibody (Negative) Negative Influenza Type A (PCR) Cancelled Influenza Type B (PCR) Cancelled RSV (PCR) Cancelled Range/Units 02/03/21 07:25 WBC (4.4-10.8) 10^3/uL RBC (3.93-5.22) 10^6/uL Hgb (11.2-15.7) g/dL Hct (36.0-46.0) % MCV (80-95) fL MCH (27.0-33.0) pg MCHC (32.0-36.0) % RDW (11.7-14.6) % Plt Count (130-400) 10^3/uL MPV (8.0-11.0) fL Immature Gran % Neutrophils % Lymphocytes % Monocytes % Eosinophils % Basophils % Nucleated RBC % % Absolute Neutrophils (1.2-6.7) 10^3/uL Absolute Lymphocytes (1.2-3.4) 10^3/uL Absolute Monocytes (0.1-0.8) 10^3/uL Absolute Eosinophils (0.0-0.7) 10^3/uL Absolute Basophils (0.0-0.2) 10^3/uL PT (9.3-11.0) sec INR (0.9-1.1) APTT (21.0-27.5) sec Sodium (136-145) mmol/L Potassium (3.5-5.1) mmol/L Chloride (98-107) mmol/L Carbon Dioxide (21.0-32.0) mmol/L Anion Gap (3-11) mmol/L BUN (7-18) mg/dL Creatinine (0.55-1.02) mg/dL Estimated GFR/1.73 m2 (mL/min/1.73m2) Glucose (74-106) mg/dL Calcium (8.5-10.1) mg/dL Magnesium (1.8-2.4) mg/dL Total Bilirubin (0.2-1.0) mg/dL Conjugated Bilirubin (0.0-0.2) mg/dL AST (15-37) U/L ALT (14-59) U/L Alkaline Phosphatase (46-116) U/L Troponin I (<0.06) ng/mL < 0.05 Total Protein (6.4-8.2) g/dL Albumin (3.4-5.0) g/dL Lipase (73-393) U/L COVID-19 Source SARS-CoV-2 (PCR) Hepatitis A IgM Ab (Negative) Hep Bs Antigen (Negative) Hep B Core Total Ab (Negative) Hepatitis C Antibody (Negative) Influenza Type A (PCR) Influenza Type B (PCR) RSV (PCR) ECG Data Attestation: I personally reviewed and interpreted this ECG (s) as follows: Interpretation: EKG shows sinus rhythm at 60, normal axis, no STEMI, no major change from prior earlier today, nondiagnostic EKG HPI <Ken Lopez MD - Last Filed: 02/03/21 06:53> General Mode of arrival: ambulatory . Date/Time Provider Initiated Documentation: 02/03/21 04:09 . Limitations to Documentation: no limitations . Information obtained by: patient . History of Present Illness 70 year old F presents to the emergency department with the chief complaint of chest pain, described as moderate, and is localized to the chest. Patient reports no radiation. Patient started experiencing this hour(s) (1) No relieving factors improve symptom(s), No exacerbating factors reported . Patient did receive the following treatments prior to arrival, none Related Data Home Medications Medication Instructions Recorded Confirmed cholecalciferol (vitamin D3) 1,000 unit PO DAILY 04/19/13 02/11/21 loratadine 10 mg tablet 10 mg PO DAILY PRN 03/20/19 02/11/21 acyclovir 400 mg tablet 400 mg PO BID PRN #20 tab-cap 11/28/20 02/11/21 lisinopril 10 1 tab PO DAILY #90 tab-cap 11/28/20 02/11/21 mg-hydrochlorothiazide 12.5 mg tablet pravastatin 40 mg tablet 40 mg PO HS #90 tab-cap 11/28/20 02/11/21 sertraline 50 mg tablet 50 mg PO DAILY #30 tab 11/28/20 02/11/21 metoprolol succinate 25 mg 25 mg PO DAILY #90 tab 01/23/21 02/11/21 tablet,extended release 24 hr Previous Rx's Medication Instructions Recorded acyclovir 400 mg tablet 400 mg PO BID PRN #20 tab-cap 11/28/20 lisinopril 10 1 tab PO DAILY #90 tab-cap 11/28/20 mg-hydrochlorothiazide 12.5 mg tablet pravastatin 40 mg tablet 40 mg PO HS #90 tab-cap 11/28/20 sertraline 50 mg tablet 50 mg PO DAILY #30 tab 11/28/20 metoprolol succinate 25 mg 25 mg PO DAILY #90 tab 01/23/21 tablet,extended release 24 hr Allergies Allergy/AdvReac Type Severity Reaction Status Date / Time No Known Allergies Allergy Verified 02/11/21 15:04 General Stated Complaint: Chest Pain JOSEFA: 2 Review of Systems <Ken Lopez MD - Last Filed: 02/03/21 06:53> All systems reviewed & are unremarkable except as noted in HPI and below Constitutional Constitutional: Denies chills, Denies fever(s) and Denies weakness Cardiovascular Cardiovascular: Denies dyspnea Respiratory Respiratory: Denies cough and Denies dyspnea Gastrointestinal Gastrointestinal: Denies abdominal pain, Denies nausea and Denies vomiting Musculoskeletal Musculoskeletal: Denies joint swelling Neurologic Neurologic: Denies weakness PFS <Ken Lopez MD - Last Filed: 02/03/21 06:53> Medical History Abnormal auditory perception (05/23/15) Depression with anxiety Encounter for annual physical exam (Unknown) Essential hypertension (10/16/13) Heart murmur (10/17/13) echo 2013 [facility] [place] Herpes simplex oral Hyperlipidemia (10/10/12) Lipoma of back (11/01/14) scapula left, mri 2006 Presbycusis, bilateral (11/05/16) Skin lesion of neck Surgical History Bilateral salpingectomy with oophorectomy Endometrial Biopsy Fracture, Open Treatment RIGHT ANKLE Tooth extraction Margarito Forbes DDS tooth and bone removal 07/01/17 Family History Mother , AGE 66 Breast cancer Father , AGE 85 Diabetes Heart disease Sister No problems noted. Brother No problems noted. Son No problems noted. Maternal Grandfather No problems noted. Paternal Grandfather No problems noted. Maternal Grandfather No problems noted. Paternal Grandfather No problems noted. 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 Pets and animals: Yes (grand dogs stay occasionally) Pets and animals: dog(s) Sexually active: No Do you think of yourself as: straight/heterosexual Current gender identity: female What is your relationship status?: How often do you talk on the phone with friends or family?: three or more times per week How often do you get together with friends or relatives?: once per week How often do you attend moravian or synagogue services?: decline to answer Do you belong to any clubs or organized social groups?: no Panel score (0-1 are the most socially isolated patients): 2 What type of physical activity do you participate in: none Beba/Buddhism: None Special beba needs: No Seatbelt use: always Drive intox or ride w/intox tractor driver: No Do you feel safe at home: Yes Do you feel safe in your relationship?: Yes Victim of physical abuse: No Victim of emotional abuse: Yes Victim of sexual abuse: No Would you like helpful sources: Yes Exam <Ken Lopez MD - Last Filed: 02/03/21 06:53> Const General: no acute distress Orientation: alert [facility] Head: normal to inspection Ears: external ears normal General nose exam: external nose normal Mouth: moist mucous membranes Eyes General: appearance normal, both eyes and all related structures Neck Neck: normal visual inspection Resp Effort & Inspection: normal respiratory effort and able to speak in complete sentences Cardio Rate: regular rate Skin General skin exam: no rashes or lesions noted Neuro General: patient alert and patient oriented x3 Extrem General: normal to inspection Psych Mental Status: mental status grossly normal Course <Ken Lopez MD - Last Filed: 02/03/21 06:53> Vital Signs Vital signs: Vital Signs Temperature 36.4 C L 02/03/21 04:12 Pulse 76 02/03/21 04:12 Respiratory Rate 16 02/03/21 04:12 Pulse Oximetry 95 02/03/21 04:12 Temperature 36.4 C L 02/03/21 04:12 Temperature Source Skin 02/03/21 04:12 Pulse 76 02/03/21 04:12 Respiratory Rate 16 02/03/21 04:12 Pulse Oximetry 95 02/03/21 04:12 Oxygen Delivery Method Room Air 02/03/21 04:12 Oxygen Flow Rate 0 02/03/21 04:12 Pain Level 4 02/03/21 04:12 Sign Out <Ken Lopez MD - Last Filed: 02/03/21 06:53> Sign Out Data: Sign Out Comment: Patient admitted in December for chest pain and found on echo to have severe aortic stenosis had 10 minutes of nonexertional chest pain prior to arrival and no pain here. Negative initial troponin and unchanged ekg. Discussed with cardiology at [facility] [place] who did not feel transfer or urgent/emergent stress testing indicated, they are going to expedite follow up with her for preop planning/testing for her valve. If pain free, ekg and troponin unchanged can be discharged home Last updated by Ken Lopez MD at 02/03/21 06:52
[2021-02-03 04:27] LABS: Absolute Basophil Count 0.06 10^3/uL (0.0-0.2); Absolute Eosinophil Count 0.55 10^3/uL (0.0-0.7); Absolute Monocyte Count 0.43 10^3/uL (0.1-0.8); Absolute Neutrophil Count 2.58 10^3/uL (1.2-6.7); Basophils % 1.3; Eosinophils % 11.9; HCT 38.4 % (36.0-46.0); HGB 12.9 g/dL (11.2-15.7); Lymphocytes % 21.6; MCH 30.9 pg (27.0-33.0); MCHC 33.6 % (32.0-36.0); MCV 92.1 fL (80-95); MPV 9.7 fL (8.0-11.0); Monocytes % 9.3; Neutrophils % 55.9; Nucleated RBC 0 %; Platelet Count 230 10^3/uL (130-400); RBC 4.17 10^6/uL (3.93-5.22); RDW 11.9 % (11.7-14.6); RDW-SD 40.2 fL; WBC 4.62 10^3/uL (4.4-10.8)
[2021-02-03] MEDS: Aspirin 81 MG CHEW 324 MG CH (04:32)
[2021-02-03 04:42] LABS: Bilirubin, Direct 0.1 mg/dL (0.0-0.2); Bilirubin, Total 0.2 mg/dL (0.2-1.0); Magnesium 2.3 mg/dL (1.8-2.4)
[2021-02-03 04:45] LABS: ALT 150 U/L (14-59); AST 158 U/L (15-37); Albumin 3.7 g/dL (3.4-5.0); Alkaline Phosphatase 86 U/L (46-116); Anion Gap 9.7 mmol/L (3-11); BUN 14 mg/dL (7-18); Bilirubin, Total 0.2 mg/dL (0.2-1.0); CO2 30.3 mmol/L (21.0-32.0); CREATININE 0.9 mg/dL (0.55-1.02); Calcium 8.9 mg/dL (8.5-10.1); Chloride 101 mmol/L (98-107); Glucose 106 mg/dL (74-106); Lipase 177 U/L (73-393); Potassium 3.5 mmol/L (3.5-5.1); Sodium 141 mmol/L (136-145)
--- NOTE | 2021-02-03 04:45 | DI.CT_ITS ---
EXAM: CT CHEST PE ABD PELVIS W CLINICAL HISTORY: chest pain, elevated lft's. TECHNIQUE: Imaging Protocol: Axial CT angiography was performed with multi-slice acquisition and m ulti-planar and/or 3D reconstructions. CONTRAST MATERIAL: Intravenous: Omnipaque 350 Contrast volume:100 ml Oral: None Intravenous: Omnipaque 350 Contrast volume: 60 cc COMPARISON: No exams were available for comparison FINDINGS: CHEST: PULMONARY ARTERIES: There are no intra-arterial filling defects to suggest the presence of acute pulm onary emboli. LUNGS: There is no evidence of pulmonary infarction. There are no pleural effusions. MEDIASTINUM: There is no hilar nor mediastinal adenopathy. Visualized thyroid unremarkable. CARDIAC: Heart size is normal. There is no pericardial effusion. There is no significant shift of t he interventricular septum.Caliber of the thoracic aorta is upper normal limits. OSSEOUS: No significant osseous lesions.. ABDOMEN: There is no ascites. LIVER: There are few small cysts in the left hepatic lobe. The largest of these measures 5 millimete rs. There are no ominous focal hepatic lesions evident. GALLBLADDER/BILIARY: No obvious gallbladder pathology. CBD is not dilated. PANCREAS: No evidence of pancreatic mass nor dilatation of the pancreatic duct. SPLEEN: Spleen is not enlarged. There are no intrasplenic lesions. Splenic and portal veins are cruz nt. ADRENALS: There are no significant adrenal masses. KIDNEYS:No cysts evident. No calculi nor hydronephrosis. No solid renal masses. ABDOMINAL AORTA: There is some atherosclerotic involvement of the abdominal aorta on the left side at the celiac artery level with left side mural thrombus at this level. LYMPH NODES: There is no retroperitoneal or para-aortic adenopathy. ABDOMINAL WALL/GI: No evidence of significant anterior abdominal wall hernia. No bowel obstruction. PELVIS: LYMPH NODES: There is no intrapelvic nor inguinal adenopathy. GI: No evidence of appendicitis.No evidence of sigmoid diverticulitis. URINARY BLADDER: No calculi nor masses evident REPRODUCTIVE: OSSEOUS: No significant osseous lesions. IMPRESSION: 1. No evidence of acute pulmonary emboli nor pulmonary infarction. 2. There are no pleural effusions. 3. Atherosclerotic involvement on the left side of the upper abdominal aorta above the level the left renal artery. No dissection evident. 4. Small benign cysts measuring less than 1 centimeter in the left hepatic lobe. No solid liver mass es. 5. There is no ascites RADIATION DOSE DELIVERED: LINK-TO-SR Total DLP DATA REPOSITORY: All CT scans at this facility are submitted to the National Radiology Data Registry (NRDR) Dose Index Registry (DIR) with the [employer] ([employer]). RADIATION OPTIMIZATION: All CT scans at this facility use at least one of these dose optimization te chniques: automated exposure control; mA and/or kV adjustment per patient size (includes targeted exa ms where dose is matched to clinical indication); or iterative reconstruction.
[2021-02-03 04:46] LABS: Troponin I < 0.05 ng/mL (<0.06)
--- NOTE | 2021-02-03 04:59 | DI.VRAD_ITS ---
PROCEDURE INFORMATION: Exam: XR Chest Exam date and time: 02/03/2021 4:28 AM Age: 70 years old Clinical indication: Chest pain; Type not specified TECHNIQUE: Imaging protocol: XR of the chest Views: 2 views. COMPARISON: CR XR PORTABLE CHEST AP 12/30/2020 10:08 AM FINDINGS: Lungs: Hyperinflation compatible with COPD. Pleural spaces: Unremarkable. No pleural effusion. No pneumothorax. Heart/Mediastinum: Unremarkable. No cardiomegaly. Bones/joints: Unremarkable. IMPRESSION: Hyperinflation compatible with COPD. Dictated and Authenticated by: Ld Mcknight MD. Ordering:KASSIDY Rogers MD
[2021-02-03 05:06] LABS: PTT Activated 23.9 sec (21.0-27.5); Prothrombin Time 9.7 sec (9.3-11.0)
[2021-02-03] MEDS: Ondansetron 4 MG/2 ML VIAL IVP (05:14)
[2021-02-03] MEDS: Omnipaque 350 MG/ML 100 ML BTL IJ (05:40)
[2021-02-03] MEDS: Normal Saline Flush 10 ML SYR IVP (05:41)
[2021-02-03] MEDS: Normal Saline - Diluent 50 ML VIAL IV (05:41)
--- NOTE | 2021-02-03 05:51 | DI.VRAD_ITS ---
PROCEDURE INFORMATION: Exam: CT Angiography Chest With Contrast Exam date and time: 02/03/2021 5:25 AM Age: 70 years old Clinical indication: Abnormal findings; Abnormal lab test; Patient HX: Chest pain, elevated lfts TECHNIQUE: Imaging protocol: Computed tomographic angiography of the chest with contrast. 3D rendering (Not supervised by radiologist): MIP and/or 3D reconstructed images were created by the technologist. Radiation optimization: All CT scans at this facility use at least one of these dose optimization techniques: automated exposure control; mA and/or kV adjustment per patient size (includes targeted exams where dose is matched to clinical indication); or iterative reconstruction. Contrast material: OMNIPAQUE 350; Contrast volume: 60 ml; Contrast route: INTRAVENOUS (IV); COMPARISON: CR XR CHEST 2V PA LATERAL 02/03/2021 4:40 AM FINDINGS: Pulmonary arteries: Normal. No pulmonary emboli. Aorta: Unremarkable. No aortic aneurysm. No aortic dissection. Lungs: Unremarkable. No consolidation. No masses. Pleural spaces: Unremarkable. No pneumothorax. No pleural effusion. Heart: Unremarkable. No cardiomegaly. No pericardial effusion. Lymph nodes: Unremarkable. No enlarged lymph nodes. Bones/joints: Unremarkable. No acute fracture. Soft tissues: Unremarkable. IMPRESSION: No acute findings. PROCEDURE INFORMATION: Exam: CT Abdomen And Pelvis With Contrast Exam date and time: 02/03/2021 5:25 AM Age: 70 years old Clinical indication: Abnormal findings; Abnormal lab test; Patient HX: Chest pain, elevated lfts TECHNIQUE: Imaging protocol: Computed tomography of the abdomen and pelvis with contrast. Radiation optimization: All CT scans at this facility use at least one of these dose optimization techniques: automated exposure control; mA and/or kV adjustment per patient size (includes targeted exams where dose is matched to clinical indication); or iterative reconstruction. Contrast material: OMNIPAQUE 350; Contrast volume: 60 ml; Contrast route: INTRAVENOUS (IV); COMPARISON: CR XR CHEST 2V PA LATERAL 02/03/2021 4:40 AM FINDINGS: Liver: Simple hepatic cysts measure up to 4 mm Gallbladder and bile ducts: Normal. No calcified stones. No ductal dilation. Pancreas: Normal. No ductal dilation. Spleen: Normal. No splenomegaly. Adrenal glands: Normal. No mass. Kidneys and ureters: Normal. No hydronephrosis. Stomach and bowel: Gastric wall thickening reflects underdistention versus gastritis in the correct clinical setting. Appendix: No evidence of appendicitis. Intraperitoneal space: Unremarkable. No free air. No significant fluid collection. Vasculature: Unremarkable. No abdominal aortic aneurysm. Lymph nodes: Unremarkable. No enlarged lymph nodes. Urinary bladder: Unremarkable as visualized. Reproductive: Unremarkable as visualized. Bones/joints: Unremarkable. No acute fracture. Soft tissues: Unremarkable. IMPRESSION: Gastric wall thickening reflecting underdistention versus gastritis. Dictated and Authenticated by: Ld Mcknight MD. Ordering:KASSIDY Rogers MD
--- NOTE | 2021-02-03 07:30 | RT.EKG_ITS ---
APPROVED REPORT Exam: Resting ECG Patient Location: E HR:60 bpm ECG Measurements Heart Rate 60 AXIS PA 155 P 53 QRSd 91 QRS -24 QT 399 T 7 QTc 400 Conclusion Sinus rhythm...normal P axis, V-rate 60- 99 sinus rhythm at 60, normal axis, no STEMI, no major change from prior earlier today, nondiagnostic EK G
[2021-02-03 07:53] LABS: Troponin I < 0.05 ng/mL (<0.06)
[2021-02-04 12:05] LABS: Hepatitis A Antibody IgM Negative (Negative); Hepatitis B Core Antibody Negative (Negative); Hepatitis B surface Ag Negative (Negative); Hepatitis C Ab w Rflx HCV PCR Negative (Negative)
== END 2021-02-03 10:47 | disposition home or self-care (01) ==
PROVIDERS: Emergency Medicine; Emergency Provider Student in an Organized Health Care Education/Training Program
DX: R07.89 Other chest pain (principal); R74.01 Elevation of levels of liver transaminase levels
CPT/HCPCS: 36415; 71275; 74177; 80053; 83690; 86704; 86709; 86803; 87340; 93005; 96374; 99285; 71046; 82247; 82248; 83735; 84484; 85025; 85610; 85730; 93010; J2405; J3490

== ENCOUNTER 2021-02-11 13:07 | Outpatient (CLI) | payer MEDICARE, BC, SELFPAY | END 2021-02-11 13:08 | LOC: CARDO 02-12 10:32 | PROVIDERS: Referring Provider Internal Medicine Cardiovascular Disease; Visit Provider Internal Medicine Cardiovascular Disease | DX: R07.9 Chest pain, unspecified (principal); I47.1 Supraventricular tachycardia; I49.1 Atrial premature depolarization | CPT/HCPCS: 93272 ==

== ENCOUNTER 2021-02-11 16:14 | Outpatient (REF) | payer MEDICARE, BC, SELFPAY ==
[2021-02-11 21:37] LABS: Bilirubin Negative (Negative); Blood Negative (Negative); Clarity Clear (Clear); Glucose Negative (Negative); Ketones Negative (Negative); Leukocyte Esterase Negative (Negative); Nitrite Negative (Negative); Urobilinogen 0.2 EU/dL (Up TO 0.2); pH 6.5 (5-8)
== END 2021-02-11 16:15 | disposition home or self-care (01) ==
LOC: LBN 16:14
DX: R31.9 Hematuria, unspecified (principal)
CPT/HCPCS: 81003

== ENCOUNTER → 2021-04-01 09:24 | Outpatient (BNVA) | payer MEDICARE, BC, SELFPAY | PROVIDERS: Visit Provider Internal Medicine Cardiovascular Disease | DX: I35.0 Nonrheumatic aortic (valve) stenosis (principal); R00.0 Tachycardia, unspecified | CPT/HCPCS: 99443 ==

== ENCOUNTER 2021-04-18 10:00 | Outpatient (RCR) | payer MEDICARE, BC, SELFPAY | END 2021-04-21 23:59 | disposition home or self-care (01) | LOC: CR 10:00 | PROVIDERS: Visit Provider Family Medicine | DX: Z51.89 Encounter for other specified aftercare (principal); Z95.2 Presence of prosthetic heart valve | CPT/HCPCS: S9472 ==

== ENCOUNTER 2021-05-21 10:00 | Outpatient (RCR) | payer MEDICARE, BC, SELFPAY | END 2021-05-21 23:59 | disposition home or self-care (01) | LOC: CR 10:00 | PROVIDERS: Visit Provider Family Medicine | DX: Z51.89 Encounter for other specified aftercare (principal); Z95.2 Presence of prosthetic heart valve | CPT/HCPCS: S9472 ==

== ENCOUNTER 2021-06-20 10:00 | Outpatient (RCR) | payer MEDICARE, BC, SELFPAY | END 2021-06-21 23:59 | disposition home or self-care (01) | LOC: CR 10:00 | PROVIDERS: Visit Provider Family Medicine | DX: Z51.89 Encounter for other specified aftercare (principal); Z95.2 Presence of prosthetic heart valve | CPT/HCPCS: S9472 ==

== ENCOUNTER 2021-06-24 08:23 | Outpatient (RCR) | payer SELFPAY ==
[2021-06-24 13:58] VITALS: BP 135/86; PULSE 64
[2021-06-26 14:03] VITALS: BP 127/73; PULSE 63
[2021-07-08 14:41] VITALS: BP 131/81; PULSE 66
[2021-07-10 13:56] VITALS: BP 129/71; PULSE 66
[2021-07-17 14:10] VITALS: BP 136/78; PULSE 65
== END 2021-07-22 23:59 | disposition home or self-care (01) ==
LOC: CR 08:23
PROVIDERS: Visit Provider Family Medicine
DX: Z51.89 Encounter for other specified aftercare (principal); Z95.2 Presence of prosthetic heart valve

== ENCOUNTER 2021-07-22 14:00 | Outpatient (RCR) | payer MEDICARE, BC, SELFPAY ==
[2021-07-01 14:41] VITALS: BP 128/74; PULSE 64
[2021-07-08 13:55] VITALS: BP 131/81; PULSE 66
[2021-07-15 13:55] VITALS: BP 126/79; PULSE 68
[2021-07-22 14:00] VITALS: BP 138/80; PULSE 60
== END 2021-07-22 23:59 | disposition home or self-care (01) ==
LOC: CR 14:00
PROVIDERS: Visit Provider Family Medicine
DX: Z51.89 Encounter for other specified aftercare (principal); Z95.2 Presence of prosthetic heart valve
CPT/HCPCS: S9472

== ENCOUNTER 2021-08-21 14:00 | Outpatient (RCR) | payer SELFPAY ==
[2021-07-23 00:12] VITALS: BP 136/78; PULSE 65
[2021-07-29 14:08] VITALS: BP 144/81; PULSE 59
[2021-07-31 14:15] VITALS: BP 116/73; PULSE 67
[2021-08-05 13:52] VITALS: BP 125/82; PULSE 74
[2021-08-07 15:09] VITALS: BP 137/83; PULSE 64
[2021-08-12 13:53] VITALS: BP 134/82; PULSE 65
[2021-08-14 14:00] VITALS: BP 127/75; PULSE 66
[2021-08-19 14:17] VITALS: BP 128/78; PULSE 67
[2021-08-21 13:52] VITALS: BP 139/80; PULSE 60
== END 2021-08-21 23:59 | disposition home or self-care (01) ==
LOC: CR 14:00
PROVIDERS: Visit Provider Family Medicine
DX: Z51.89 Encounter for other specified aftercare (principal)

== ENCOUNTER 2021-09-18 14:00 | Outpatient (RCR) | payer SELFPAY ==
[2021-08-22 00:22] VITALS: BP 139/80; PULSE 60
[2021-08-26 13:54] VITALS: BP 138/79; PULSE 61
[2021-08-28 14:00] VITALS: BP 134/86; PULSE 62
[2021-09-02 14:47] VITALS: BP 126/79; PULSE 68
[2021-09-04 14:09] VITALS: BP 119/74; PULSE 71
[2021-09-09 13:51] VITALS: BP 139/78; PULSE 66
[2021-09-11 13:54] VITALS: BP 156/88; PULSE 56
[2021-09-11 14:37] VITALS: BP 133/73
[2021-09-16 14:34] VITALS: BP 133/81; PULSE 61
[2021-09-18 15:08] VITALS: BP 131/84; PULSE 61
== END 2021-09-21 23:59 | disposition home or self-care (01) ==
LOC: CR 14:00
PROVIDERS: Visit Provider Family Medicine
DX: Z51.89 Encounter for other specified aftercare (principal); R69 Illness, unspecified

== ENCOUNTER → 2021-10-06 13:59 | Outpatient (BNVA) | payer MEDICARE, BC, SELFPAY | PROVIDERS: Visit Provider Internal Medicine Cardiovascular Disease | DX: I35.0 Nonrheumatic aortic (valve) stenosis (principal); Z98.890 Other specified postprocedural states | CPT/HCPCS: 99212; 99213 ==

== ENCOUNTER 2021-10-21 14:00 | Outpatient (RCR) | payer SELFPAY ==
[2021-09-22 00:10] VITALS: BP 131/84; PULSE 61
[2021-09-23 13:53] VITALS: BP 134/80; PULSE 63
[2021-09-25 13:50] VITALS: BP 137/79; PULSE 61
[2021-09-30 14:03] VITALS: BP 121/72; PULSE 62
[2021-10-02 14:26] VITALS: BP 126/78; PULSE 63
[2021-10-21 14:19] VITALS: BP 147/84; PULSE 67
== END 2021-10-21 23:59 | disposition home or self-care (01) ==
LOC: CR 14:00
PROVIDERS: Visit Provider Family Medicine
DX: Z51.89 Encounter for other specified aftercare (principal); R69 Illness, unspecified

== ENCOUNTER 2021-11-20 14:00 | Outpatient (RCR) | payer SELFPAY ==
[2021-10-22 00:16] VITALS: BP 147/84; PULSE 67
[2021-10-23 13:56] VITALS: BP 134/77; PULSE 63
[2021-10-28 14:28] VITALS: BP 145/77; PULSE 64
[2021-10-30 13:53] VITALS: BP 143/76; PULSE 58
[2021-11-04 14:23] VITALS: BP 147/72; PULSE 58
[2021-11-06 14:28] VITALS: BP 139/86; PULSE 63
[2021-11-11 13:56] VITALS: BP 148/84; PULSE 68
[2021-11-13 14:53] VITALS: BP 148/77; PULSE 60
[2021-11-18 14:01] VITALS: BP 148/78; PULSE 64
[2021-11-20 14:46] VITALS: BP 117/58; PULSE 64
== END 2021-11-21 23:59 | disposition home or self-care (01) ==
LOC: CR 14:00
PROVIDERS: Visit Provider Family Medicine
DX: Z51.89 Encounter for other specified aftercare (principal); R69 Illness, unspecified

== ENCOUNTER 2021-11-24 15:02 | Outpatient (RCR) | payer SELFPAY ==
[2021-11-22 00:07] VITALS: BP 117/58; PULSE 64
== END 2021-12-22 23:59 | disposition home or self-care (01) ==
LOC: CR 15:02
PROVIDERS: Visit Provider Family Medicine
DX: R69 Illness, unspecified (principal)

== ENCOUNTER 2021-11-27 04:03 | Outpatient (CLI) | payer MEDICARE, BC, SELFPAY ==
[2021-11-27 12:48] LABS: ALT 78 U/L (14-59); AST 61 U/L (15-37); Albumin 4.1 g/dL (3.4-5.0); Alkaline Phosphatase 89 U/L (46-116); Anion Gap 5.3 mmol/L (3-11); BUN 15 mg/dL (7-18); Bilirubin, Total 0.6 mg/dL (0.2-1.0); CO2 33.7 mmol/L (21.0-32.0); CREATININE 0.8 mg/dL (0.55-1.02); Calcium 9.1 mg/dL (8.5-10.1); Calculated LDL 98 mg/dL (<100); Chloride 101 mmol/L (98-107); Cholesterol 188 mg/dL (<200); Glucose 96 mg/dL (74-106); HDL Cholesterol 79 mg/dL (40-60); Potassium 4.1 mmol/L (3.5-5.1); Sodium 140 mmol/L (136-145); Total Protein 6.8 g/dL (6.4-8.2); Triglyceride 57 mg/dL (<150)
== END 2021-11-27 04:04 | disposition home or self-care (01) ==
LOC: LBO 04:03
DX: I10 Essential (primary) hypertension (principal); Z00.00 Encounter for general adult medical examination without abnormal findings
CPT/HCPCS: 36415; 80053; 80061

== ENCOUNTER 2021-12-11 01:28 | Outpatient (CLI) | payer MEDICARE, BC, SELFPAY ==
--- NOTE | 2021-12-11 07:15 | DI.MAMMO_ITS ---
Exam(s) MAMMO SCREENING EXAM: MAMMO SCREENING CLINICAL HISTORY: screening,z12.39. TECHNIQUE: Bilateral full field digital CC and MLO mammographic images were obtained with 3D tomosyn thesis and utilizing computer aided detection (CAD). COMPARISON: Prior mammograms were reviewed, the most recent being 05/19/2019. Significant family history. Her mother was diagnosed with breast cancer (after age 50) FINDINGS: Fibroglandular tissue pattern is moderately dense, this somewhat decreasing the sensitivity of the ma mmogram for finding hidden underlying lesions. There are no new spiculated masses nor malignant appearing microcalcification groups. There is no significant architectural distortion nor skin thickening-retraction. IMPRESSION: No radiographic evidence of malignancy. BI-RADS Category 1 - Negative Breast Density - Category C - Heterogeneously dense Breast density Category C or D implies that the patient has dense breast tissue. Dense breast tissue can make it harder to find cancer on a mammogram. Dense breast tissue is also associated with an incr eased risk of breast cancer. This information about the result of the mammogram report was provided to the patient to raise their awareness. Use this report when you speak with the patient about their risks for breast cancer, which includes their family history. At that time, you may recommend additional screening tests (Ultrasoun d or MRI) as these tests may add significant information. A negative radiographic report should not delay biopsy if a dominant or clinically suspicious mass is present. Up to ten percent of cancers are not identified on mammography. A negative report may reinforce clinical impression. Adenosis and dense breasts may obscure an underlying neoplasm. False positive reports average 6 to 10%. Patient will receive a letter notifying them of these results.
== END 2021-12-11 01:48 ==
DX: Z12.31 Encounter for screening mammogram for malignant neoplasm of breast (principal); R92.8 Other abnormal and inconclusive findings on diagnostic imaging of breast
CPT/HCPCS: 77063; 77067

== ENCOUNTER 2022-02-17 14:00 | Outpatient (RCR) | payer SELFPAY ==
[2022-01-20 14:15] VITALS: BP 130/75; PULSE 70
[2022-01-22 14:20] VITALS: BP 138/78
[2022-01-27 13:53] VITALS: BP 147/82; PULSE 74
[2022-01-29 14:01] VITALS: BP 117/69; PULSE 77
[2022-02-03 13:57] VITALS: BP 132/77; PULSE 66; O2SAT 91
[2022-02-05 14:45] VITALS: BP 137/75; PULSE 60
[2022-02-10 13:55] VITALS: BP 141/76; PULSE 67; O2SAT 98
[2022-02-12 13:54] VITALS: BP 141/74; PULSE 64; O2SAT 97
[2022-02-17 14:05] VITALS: BP 133/76; PULSE 66
== END 2022-02-19 23:59 | disposition home or self-care (01) ==
LOC: CR 14:00
PROVIDERS: Visit Provider Family Medicine
DX: R69 Illness, unspecified (principal)

== ENCOUNTER 2022-03-19 14:00 | Outpatient (RCR) | payer SELFPAY ==
[2022-02-20 00:06] VITALS: BP 133/76; PULSE 66
[2022-03-03 13:58] VITALS: BP 136/79; PULSE 64
[2022-03-05 14:11] VITALS: BP 129/74; PULSE 72
[2022-03-10 14:00] VITALS: BP 128/75; PULSE 62
[2022-03-12 14:50] VITALS: BP 122/69; PULSE 88; O2SAT 98
[2022-03-19 13:49] VITALS: BP 137/75; PULSE 65
== END 2022-03-21 23:59 | disposition home or self-care (01) ==
LOC: CR 14:00
PROVIDERS: Visit Provider Internal Medicine Cardiovascular Disease
DX: R69 Illness, unspecified (principal)

== ENCOUNTER 2022-04-21 14:02 | Outpatient (RCR) | payer SELFPAY ==
[2022-03-22 00:03] VITALS: BP 137/75; PULSE 65
[2022-03-24 14:06] VITALS: BP 137/76; PULSE 63
[2022-03-26 13:59] VITALS: BP 130/69; PULSE 69
[2022-03-31 13:51] VITALS: BP 131/79; PULSE 65
[2022-04-02 14:00] VITALS: BP 132/75; PULSE 74
[2022-04-07 14:23] VITALS: BP 133/74; PULSE 74
[2022-04-14 13:56] VITALS: BP 135/77; PULSE 74
[2022-04-16 13:56] VITALS: BP 133/77; PULSE 61
[2022-04-21 13:58] VITALS: BP 141/79; PULSE 64
== END 2022-04-21 23:59 | disposition home or self-care (01) ==
LOC: CR 14:02
PROVIDERS: Visit Provider Internal Medicine Cardiovascular Disease
DX: R69 Illness, unspecified (principal)

== ENCOUNTER 2022-05-21 14:00 | Outpatient (RCR) | payer SELFPAY ==
[2022-04-22 00:12] VITALS: BP 141/79; PULSE 64
[2022-04-28 13:50] VITALS: BP 137/78; PULSE 67
[2022-04-30 14:41] VITALS: BP 136/75; PULSE 62
[2022-05-05 14:12] VITALS: BP 137/72; PULSE 82
[2022-05-07 13:49] VITALS: BP 131/74; PULSE 76
[2022-05-12 14:04] VITALS: BP 142/73; PULSE 62
[2022-05-14 14:41] VITALS: BP 133/68; PULSE 72
[2022-05-19 13:56] VITALS: BP 140/78; PULSE 64
== END 2022-05-21 23:59 | disposition home or self-care (01) ==
LOC: CR 14:00
PROVIDERS: Visit Provider Internal Medicine Cardiovascular Disease
DX: R69 Illness, unspecified (principal)

== ENCOUNTER 2022-06-18 13:47 | Outpatient (RCR) | payer SELFPAY ==
[2022-05-26 14:25] VITALS: BP 137/71; PULSE 69
[2022-05-28 14:00] VITALS: BP 138/80; PULSE 68
[2022-06-02 13:53] VITALS: BP 130/75; PULSE 73
[2022-06-04 14:28] VITALS: BP 136/82; PULSE 71
[2022-06-09 13:49] VITALS: BP 132/71; PULSE 66
[2022-06-11 13:52] VITALS: BP 127/75; PULSE 67
[2022-06-16 13:49] VITALS: BP 129/81; PULSE 67
[2022-06-18 13:30] VITALS: BP 137/78; PULSE 73
== END 2022-06-21 23:59 | disposition home or self-care (01) ==
LOC: CR 13:47
PROVIDERS: Visit Provider Internal Medicine Cardiovascular Disease
DX: R69 Illness, unspecified (principal)

== ENCOUNTER 2022-07-21 13:53 | Outpatient (RCR) | payer SELFPAY ==
[2022-06-22 00:03] VITALS: BP 137/78; PULSE 73
[2022-06-25 14:11] VITALS: BP 134/69; PULSE 67
[2022-06-30 14:05] VITALS: BP 133/74; PULSE 67
[2022-07-02 15:05] VITALS: BP 133/76; PULSE 70
[2022-07-07 13:51] VITALS: BP 125/72; PULSE 79
[2022-07-09 13:51] VITALS: BP 132/77; PULSE 66
[2022-07-14 13:49] VITALS: BP 128/76; PULSE 75
[2022-07-16 14:03] VITALS: BP 132/74; PULSE 68
[2022-07-21 13:57] VITALS: BP 123/75; PULSE 80
== END 2022-07-22 23:59 | disposition home or self-care (01) ==
LOC: CR 13:53
PROVIDERS: Visit Provider Internal Medicine Cardiovascular Disease
DX: R69 Illness, unspecified (principal)

== ENCOUNTER 2022-08-20 13:58 | Outpatient (RCR) | payer SELFPAY ==
[2022-07-23 00:02] VITALS: BP 123/75; PULSE 80
[2022-07-23 13:52] VITALS: BP 125/74; PULSE 72
[2022-07-28 13:59] VITALS: BP 124/72; PULSE 74
[2022-07-30 13:52] VITALS: BP 125/74; PULSE 74
[2022-08-18 14:00] VITALS: BP 125/73; PULSE 61
[2022-08-20 13:55] VITALS: BP 133/76; PULSE 67
== END 2022-08-21 23:59 | disposition home or self-care (01) ==
LOC: CR 13:58
PROVIDERS: Visit Provider Internal Medicine Cardiovascular Disease
DX: R69 Illness, unspecified (principal)

== ENCOUNTER 2022-09-17 14:07 | Outpatient (RCR) | payer SELFPAY ==
[2022-08-22 00:04] VITALS: BP 133/76; PULSE 67
[2022-09-08 14:00] VITALS: BP 132/79; PULSE 68
[2022-09-10 14:05] VITALS: BP 131/74; PULSE 65
[2022-09-15 13:54] VITALS: BP 131/71; PULSE 63
[2022-09-17 14:13] VITALS: BP 127/76; PULSE 66
== END 2022-09-21 23:59 | disposition home or self-care (01) ==
LOC: CR 14:07
PROVIDERS: Visit Provider Internal Medicine Cardiovascular Disease
DX: R69 Illness, unspecified (principal)

== ENCOUNTER 2022-10-20 14:05 | Outpatient (RCR) | payer SELFPAY ==
[2022-09-22 14:50] VITALS: BP 119/73; PULSE 61
[2022-09-24 13:58] VITALS: BP 128/70; PULSE 59
[2022-09-29 14:12] VITALS: BP 123/72; PULSE 66
[2022-10-01 13:56] VITALS: BP 117/68; PULSE 73
[2022-10-08 14:07] VITALS: BP 130/70; PULSE 72
[2022-10-13 14:02] VITALS: BP 132/72; PULSE 66
[2022-10-20 14:07] VITALS: BP 140/76; PULSE 64
== END 2022-10-21 23:59 | disposition home or self-care (01) ==
LOC: CR 14:05
PROVIDERS: PCP Nurse Practitioner Family; Visit Provider Internal Medicine Cardiovascular Disease
DX: R69 Illness, unspecified (principal)

== ENCOUNTER 2022-10-29 01:40 | Outpatient (CLI) | payer MEDICARE, BC, SELFPAY ==
[2022-10-30 10:53] LABS: Lyme Ab w Rflx to Lyme Confirm Negative (Negative)
[2022-10-31 18:29] LABS: Anaplasma phagocytophilum Negative (Negative); B. miyamotoi PCR Negative (Negative); Babesia divergens/MO-1 Negative (Negative); Babesia duncani Negative (Negative); Babesia microti Negative (Negative); Ehrlichia chaffeensis Negative (Negative); Ehrlichia ewingii/canis Negative (Negative); Ehrlichia muris eauclairensis Negative (Negative)
== END 2022-10-29 01:41 | disposition home or self-care (01) ==
LOC: LBO 01:40
PROVIDERS: PCP Nurse Practitioner Family; Visit Provider Nurse Practitioner Family
DX: W57.XXXA Bitten or stung by nonvenomous insect and other nonvenomous arthropods, initial encounter (principal); T14.8XXA Other injury of unspecified body region, initial encounter
CPT/HCPCS: 36415; 87798; 86618

== ENCOUNTER 2022-11-19 14:28 | Outpatient (RCR) | payer SELFPAY ==
[2022-10-22 00:21] VITALS: BP 140/76; PULSE 64
[2022-10-27 14:32] VITALS: BP 130/77; PULSE 67
[2022-10-29 14:18] VITALS: BP 136/68; PULSE 73
[2022-11-05 13:57] VITALS: BP 120/72; PULSE 69
[2022-11-10 14:02] VITALS: BP 126/74; PULSE 68
[2022-11-12 14:07] VITALS: BP 144/77; PULSE 69
[2022-11-17 14:01] VITALS: BP 148/78; PULSE 62
[2022-11-19 14:31] VITALS: BP 127/77; PULSE 70
== END 2022-11-21 23:59 | disposition home or self-care (01) ==
LOC: CR 14:28
PROVIDERS: PCP Nurse Practitioner Family; Visit Provider Internal Medicine Cardiovascular Disease
DX: R69 Illness, unspecified (principal)

== ENCOUNTER 2022-12-15 03:18 | Outpatient (CLI) | payer MEDICARE, BC, SELFPAY ==
[2022-12-15 14:22] LABS: ALT 30 U/L (14-59); AST 50 U/L (15-37); Albumin 4.2 g/dL (3.4-5.0); Alkaline Phosphatase 94 U/L (46-116); Anion Gap 5.7 mmol/L (3-11); BUN 20 mg/dL (7-18); Bilirubin, Total 0.8 mg/dL (0.2-1.0); CO2 32.3 mmol/L (21.0-32.0); CREATININE 0.9 mg/dL (0.55-1.02); Calcium 9.4 mg/dL (8.5-10.1); Calculated LDL 88 mg/dL (<100); Chloride 101 mmol/L (98-107); Cholesterol 184 mg/dL (<200); Estimated GFR 67.92 (mL/min/1.73m2); Glucose 74 mg/dL (74-106); HDL Cholesterol 82 mg/dL (40-60); Sodium 139 mmol/L (136-145); Total Protein 7.1 g/dL (6.4-8.2); Triglyceride 74 mg/dL (<150)
== END 2022-12-15 03:19 | disposition home or self-care (01) ==
PROVIDERS: PCP Nurse Practitioner Family; Visit Provider Nurse Practitioner Family
DX: E78.2 Mixed hyperlipidemia (principal); R79.89 Other specified abnormal findings of blood chemistry; I10 Essential (primary) hypertension; F41.8 Other specified anxiety disorders
CPT/HCPCS: 36415; 80053; 80061

== ENCOUNTER 2022-12-15 14:00 | Outpatient (RCR) | payer SELFPAY ==
[2022-11-22 00:22] VITALS: BP 127/77; PULSE 70
[2022-11-24 14:54] VITALS: BP 132/74; PULSE 64
[2022-11-26 15:23] VITALS: BP 132/74; PULSE 66
[2022-12-01 14:00] VITALS: BP 128/75; PULSE 61
[2022-12-03 14:17] VITALS: BP 131/75; PULSE 65
[2022-12-08 14:00] VITALS: BP 127/69; PULSE 68
[2022-12-10 14:02] VITALS: BP 138/78; PULSE 71
[2022-12-15 14:07] VITALS: BP 141/73; PULSE 68
== END 2022-12-22 23:59 | disposition home or self-care (01) ==
LOC: CR 14:00
PROVIDERS: PCP Nurse Practitioner Family; Visit Provider Internal Medicine Cardiovascular Disease
DX: R69 Illness, unspecified (principal)

== ENCOUNTER 2022-12-24 02:12 | Outpatient (CLI) | payer MEDICARE, BC, SELFPAY ==
--- NOTE | 2022-12-24 08:15 | DI.MAMMO_ITS ---
Exam(s) MAMMO SCREENING EXAM: MAMMO SCREENING CLINICAL HISTORY: screening, Z12.39 TECHNIQUE: Mammograms were interpreted according to the usual protocol including computer analysis w [employer] CAD system, tomosynthesis and C-view imaging. COMPARISON: 2016 through 2021 FINDINGS: The breasts are composed of heterogeneously dense fibroglandular densities, Breast Density category C . No suspicious masses or suspicious microcalcifications are seen. No skin thickening or abnormal axillary lymph nodes are seen. There has been no significant change from prior exams. IMPRESSION: BI-RADS Category 1, Negative mammogram. Yearly screening mammography is recommended. Breast Density Category C, heterogeneously Dense. The mammogram demonstrates the patient's breast tissue is dense. Dense breast tissue is very common a nd is not abnormal but dense breast tissue can make it harder to find cancer on a mammogram. Also, de nse breast tissue may increase breast cancer risk. This information about the result of the mammogram report was provided to the patient to raise their awareness. Use this report when you speak with the patient about their risks for breast cancer, which includes their family history. At that time, you may recommend additional screening tests (Ultrasound or MRI) as they might be useful based on their r isk. A negative radiographic report should not delay biopsy if a dominant or clinically suspicious mass is present. Up to ten percent of cancers are not identified on mammography. A negative report may reinforce clinical impression. Adenosis and dense breasts may obscure an underlying neoplasm. False positive reports average 6 to 10%.
--- NOTE | 2022-12-24 08:15 | DI.RAD_ITS ---
Exam(s) XR HAND LT COMPLETE EXAM: XR HAND LT COMPLETE CLINICAL HISTORY: pain, JOINT SWELLING, M25.40. TECHNIQUE: 2D digital imaging was performed. Three views. COMPARISON: No exams were available for comparison FINDINGS: BONES: No acute fracture is present. No bony destructive lesion is seen. JOINTS: No dislocation present. There is narrowing of the interphalangeal joints of the fingers and p eriarticular spurring. The findings are greatest at the 2nd and 3rd proximal interphalangeal joints where there are prominent endplate osteophytes and severe joint space narrowing as well as surroundin g soft tissue swelling. A small erosion is seen at the radial base of the middle phalanx of the 2nd finger. No additional erosions are seen. There is mild narrowing of the 3rd through 5th metacarpoph alangeal joints. The carpal region is unremarkable. 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 Superimposed inflammatory art hritis could be considered at the 2nd and 3rd PIP joints. DATA REPOSITORY: RADIATION DOSE DELIVERED:
== END 2022-12-24 02:32 ==
PROVIDERS: PCP Nurse Practitioner Family; Visit Provider Nurse Practitioner Family
DX: M19.042 Primary osteoarthritis, left hand (principal); E78.2 Mixed hyperlipidemia; Z12.31 Encounter for screening mammogram for malignant neoplasm of breast; R92.8 Other abnormal and inconclusive findings on diagnostic imaging of breast
CPT/HCPCS: 77063; 77067; 73130

== ENCOUNTER 2023-01-01 01:35 | Outpatient (CLI) | payer MEDICARE, BC, SELFPAY ==
[2023-01-01 12:33] LABS: ESR 4 mm/hr (0-30)
[2023-01-01 12:58] LABS: C-Reactive Protein < 0.05 mg/dL (0.0-0.3)
[2023-01-04 09:33] LABS: Cyclic Citrullinated Peptide <2.5 U/mL (<5.0)
[2023-01-04 14:59] LABS: ANA Interpretation Negative (Negative)
== END 2023-01-01 01:36 | disposition home or self-care (01) ==
LOC: LOS 01:35
PROVIDERS: PCP Nurse Practitioner Family; Visit Provider Nurse Practitioner Family
DX: M25.40 Effusion, unspecified joint (principal)
CPT/HCPCS: 36415; 85652; 86200; 86038; 86140

== ENCOUNTER 2023-02-02 08:20 | Outpatient (CLI) | payer SELFPAY | END 2023-02-02 08:21 | disposition home or self-care (01) | LOC: DI.CARD 08:21 | PROVIDERS: PCP Nurse Practitioner Family; Visit Provider Internal Medicine Cardiovascular Disease | CPT/HCPCS: 93010 ==

== ENCOUNTER 2023-02-16 07:50 | Outpatient (CLI) | payer MEDICARE, BC, SELFPAY ==
--- NOTE | 2023-02-16 07:45 | RT.EKG_ITS ---
APPROVED REPORT Exam: Resting ECG Reason for Exam: tachycardia Patient Location: O HR:68 bpm ECG Measurements Heart Rate 68 AXIS TX 160 P 35 QRSd 94 QRS -30 QT 391 T 17 QTc 416 Conclusion Sinus rhythm...normal P axis, V-rate 50- 99 Left axis deviation...QRS axis (-30,-90) Abnormal R-wave progression, early transition...QRS area>0 in V2
== END 2023-02-16 07:51 | disposition home or self-care (01) ==
LOC: DI.CARD 07:51
PROVIDERS: PCP Nurse Practitioner Family; Visit Provider Internal Medicine Cardiovascular Disease
DX: I35.0 Nonrheumatic aortic (valve) stenosis (principal); R00.0 Tachycardia, unspecified; R07.9 Chest pain, unspecified; I44.4 Left anterior fascicular block; R94.31 Abnormal electrocardiogram [ECG] [EKG]
CPT/HCPCS: 93010

== ENCOUNTER → 2023-02-16 13:01 | Outpatient (BNVA) | payer MEDICARE, BC, SELFPAY | PROVIDERS: PCP Nurse Practitioner Family; Visit Provider Internal Medicine Cardiovascular Disease | DX: Z95.2 Presence of prosthetic heart valve (principal); I35.0 Nonrheumatic aortic (valve) stenosis | CPT/HCPCS: 93005; 99213 ==

== ENCOUNTER 2023-02-18 14:09 | Outpatient (RCR) | payer SELFPAY ==
[2023-01-20 00:09] VITALS: BP 138/75; PULSE 58
[2023-01-21 14:07] VITALS: BP 128/75; PULSE 69
[2023-01-26 14:06] VITALS: BP 137/72; PULSE 70
[2023-01-28 14:44] VITALS: BP 117/74; PULSE 64
[2023-02-04 14:07] VITALS: BP 126/74; PULSE 68
[2023-02-09 14:08] VITALS: BP 122/74; PULSE 66
[2023-02-11 14:04] VITALS: BP 127/73; PULSE 71
[2023-02-16 14:00] VITALS: BP 128/77; PULSE 56
[2023-02-18 14:14] VITALS: BP 132/74; PULSE 60
== END 2023-02-19 23:59 | disposition home or self-care (01) ==
LOC: CR 14:09
PROVIDERS: PCP Nurse Practitioner Family; Visit Provider Internal Medicine Cardiovascular Disease

== ENCOUNTER 2023-03-18 14:06 | Outpatient (RCR) | payer SELFPAY ==
[2023-02-20 00:06] VITALS: BP 132/74; PULSE 60
[2023-02-23 14:19] VITALS: BP 133/76; PULSE 64
[2023-02-25 14:09] VITALS: BP 141/77; PULSE 70
[2023-03-02 14:05] VITALS: BP 133/77; PULSE 59
[2023-03-04 13:59] VITALS: BP 123/75; PULSE 67
[2023-03-09 13:59] VITALS: BP 141/59; PULSE 64
[2023-03-11 14:31] VITALS: BP 115/71; PULSE 65
[2023-03-18 14:30] VITALS: BP 115/71; PULSE 69
== END 2023-03-21 23:59 | disposition home or self-care (01) ==
LOC: CR 14:06
PROVIDERS: PCP Nurse Practitioner Family; Visit Provider Internal Medicine Cardiovascular Disease

== ENCOUNTER 2023-04-15 13:59 | Outpatient (RCR) | payer SELFPAY ==
[2023-03-22 00:04] VITALS: BP 115/71; PULSE 69
[2023-03-25 14:10] VITALS: BP 132/78; PULSE 70
[2023-03-30 14:29] VITALS: BP 132/77; PULSE 65
[2023-04-06 14:30] VITALS: BP 127/76; PULSE 67
[2023-04-08 14:45] VITALS: BP 135/75; PULSE 62
[2023-04-13 14:14] VITALS: BP 126/75; PULSE 73
[2023-04-15 14:02] VITALS: BP 130/75; PULSE 66
== END 2023-04-21 23:59 | disposition home or self-care (01) ==
LOC: CR 13:59
PROVIDERS: PCP Nurse Practitioner Family; Visit Provider Internal Medicine Cardiovascular Disease

== ENCOUNTER 2023-05-20 13:57 | Outpatient (RCR) | payer SELFPAY ==
[2023-04-22 00:04] VITALS: BP 130/75; PULSE 66
[2023-04-27 14:58] VITALS: BP 124/71; PULSE 72
[2023-04-29 14:28] VITALS: BP 138/71; PULSE 74
[2023-05-04 14:23] VITALS: BP 114/67; PULSE 76
[2023-05-06 14:15] VITALS: BP 118/68; PULSE 67
[2023-05-11 14:07] VITALS: BP 122/65; PULSE 66
[2023-05-13 14:52] VITALS: BP 126/71; PULSE 69
[2023-05-18 14:10] VITALS: BP 125/65; PULSE 73
[2023-05-20 13:52] VITALS: BP 119/78; PULSE 74
== END 2023-05-21 23:59 | disposition home or self-care (01) ==
LOC: CR 13:57
PROVIDERS: PCP Nurse Practitioner Family; Visit Provider Internal Medicine Cardiovascular Disease
DX: R69 Illness, unspecified (principal)

== ENCOUNTER 2023-06-17 15:40 | Outpatient (RCR) | payer SELFPAY ==
[2023-05-22 00:02] VITALS: BP 119/78; PULSE 74
[2023-05-27 14:09] VITALS: BP 123/75; PULSE 70
[2023-06-01 14:17] VITALS: BP 138/76; PULSE 65
[2023-06-03 14:20] VITALS: BP 118/74; PULSE 63
[2023-06-10 14:10] VITALS: BP 137/75; PULSE 63
[2023-06-15 14:12] VITALS: BP 131/78; PULSE 69
[2023-06-17 15:41] VITALS: BP 115/73; PULSE 70
== END 2023-06-21 23:59 | disposition home or self-care (01) ==
LOC: CR 15:40
PROVIDERS: PCP Nurse Practitioner Family; Visit Provider Internal Medicine Cardiovascular Disease
DX: R69 Illness, unspecified (principal)

== ENCOUNTER 2023-06-22 02:37 | Outpatient (CLI) | payer MEDICARE, BC, SELFPAY ==
--- NOTE | 2023-06-22 09:00 | DI.US_ITS ---
Exam(s) US SOFT TISSUE EXTREMITY EXAM: US SOFT TISSUE EXTREMITY CLINICAL HISTORY: mass on middle finger of left hand, R22.32. TECHNIQUE: Ultrasound was performed using standard protocol. COMPARISON: CR XR HAND LT COMPLETE from 12/24/2022 FINDINGS: Sonographic assessment utilizing grayscale and color Doppler imaging was performed and targeted to th e area of clinical concern. The palpable abnormality is located at the radial aspect of the middle f christofer adjacent to the proximal interphalangeal joint. The palpable abnormality corresponds to a fluid collection which could represent a synovial cyst or g anglion. No solid mass. IMPRESSION: Palpable abnormality corresponds to a fluid collection adjacent to the proximal interphalangeal joint of the middle finger. DATA REPOSITORY:
== END 2023-06-22 02:57 ==
LOC: DI 02:40
PROVIDERS: PCP Nurse Practitioner Family; Visit Provider Nurse Practitioner Family
DX: R22.32 Localized swelling, mass and lump, left upper limb (principal)
CPT/HCPCS: 76881

== ENCOUNTER 2023-07-22 14:00 | Outpatient (RCR) | payer SELFPAY ==
[2023-06-22 00:10] VITALS: BP 115/73; PULSE 70
[2023-06-22 14:42] VITALS: BP 134/77; PULSE 64
[2023-06-24 13:59] VITALS: BP 127/74; PULSE 71
[2023-06-29 15:05] VITALS: BP 136/82; PULSE 67
[2023-07-01 14:53] VITALS: BP 121/72; PULSE 65
[2023-07-06 14:48] VITALS: BP 119/72; PULSE 68
[2023-07-08 14:43] VITALS: BP 125/76; PULSE 66
[2023-07-13 14:56] VITALS: BP 124/75; PULSE 70
[2023-07-15 14:20] VITALS: BP 115/71; PULSE 63
[2023-07-20 14:23] VITALS: BP 126/73; PULSE 65
[2023-07-22 15:09] VITALS: BP 121/70; PULSE 68
== END 2023-07-22 23:59 | disposition home or self-care (01) ==
LOC: CR 14:00
PROVIDERS: PCP Nurse Practitioner Family; Visit Provider Internal Medicine Cardiovascular Disease

== ENCOUNTER 2023-08-19 14:50 | Outpatient (RCR) | payer SELFPAY ==
[2023-07-23 00:05] VITALS: BP 121/70; PULSE 68
[2023-07-27 14:02] VITALS: BP 123/71; PULSE 73
[2023-07-29 14:23] VITALS: BP 124/73; PULSE 75
[2023-08-03 14:06] VITALS: BP 128/70; PULSE 69
[2023-08-05 14:31] VITALS: BP 127/73; PULSE 65
[2023-08-12 14:06] VITALS: BP 137/78; PULSE 70
[2023-08-17 14:18] VITALS: BP 121/72; PULSE 69
[2023-08-19 14:53] VITALS: BP 128/76; PULSE 69
== END 2023-08-21 23:59 | disposition home or self-care (01) ==
LOC: CR 14:50
PROVIDERS: PCP Nurse Practitioner Family; Visit Provider Internal Medicine Cardiovascular Disease
DX: R69 Illness, unspecified (principal)

== ENCOUNTER 2023-09-21 14:06 | Outpatient (RCR) | payer SELFPAY ==
[2023-08-22 00:12] VITALS: BP 128/76; PULSE 69
[2023-08-24 14:08] VITALS: BP 141/75; PULSE 63
[2023-08-26 14:15] VITALS: BP 139/78; PULSE 81
[2023-09-14 14:11] VITALS: BP 128/73; PULSE 67
[2023-09-21 14:10] VITALS: BP 126/80; PULSE 73
[2023-09-23 14:21] VITALS: BP 133/78; PULSE 69
== END 2023-09-21 23:59 | disposition home or self-care (01) ==
LOC: CR 14:06
PROVIDERS: PCP Nurse Practitioner Family; Visit Provider Internal Medicine Cardiovascular Disease
DX: R69 Illness, unspecified (principal)

== ENCOUNTER 2023-10-19 14:22 | Outpatient (RCR) | payer SELFPAY ==
[2023-09-22 00:08] VITALS: BP 128/76; PULSE 69
[2023-10-05 14:11] VITALS: BP 123/73; PULSE 70
[2023-10-19 13:57] VITALS: BP 128/78; PULSE 77
[2023-10-21 14:16] VITALS: BP 140/79; PULSE 68
== END 2023-10-21 23:59 | disposition home or self-care (01) ==
LOC: CR 14:22
PROVIDERS: PCP Nurse Practitioner Family; Visit Provider Internal Medicine Cardiovascular Disease
DX: R69 Illness, unspecified (principal)

== ENCOUNTER 2023-11-18 14:01 | Outpatient (RCR) | payer SELFPAY ==
[2023-10-22 00:06] VITALS: BP 128/76; PULSE 69
[2023-11-04 14:50] VITALS: BP 121/74; PULSE 67
[2023-11-16 14:50] VITALS: BP 137/81; PULSE 76
== END 2023-11-21 23:59 | disposition home or self-care (01) ==
LOC: CR 14:01
PROVIDERS: PCP Nurse Practitioner Family; Visit Provider Internal Medicine Cardiovascular Disease
DX: R69 Illness, unspecified (principal)

== ENCOUNTER 2023-11-30 14:00 | Outpatient (RCR) | payer SELFPAY ==
[2023-11-22 00:04] VITALS: BP 128/76; PULSE 69
[2023-11-23 14:27] VITALS: BP 114/73; PULSE 77
== END 2023-12-22 23:59 | disposition home or self-care (01) ==
LOC: CR 14:00
PROVIDERS: PCP Nurse Practitioner Family; Visit Provider Internal Medicine Interventional Cardiology
DX: R69 Illness, unspecified (principal)

== ENCOUNTER 2024-01-18 13:57 | Outpatient (RCR) | payer SELFPAY ==
[2023-12-23 00:04] VITALS: BP 128/76; PULSE 69
[2024-01-04 14:13] VITALS: BP 135/77; PULSE 78
[2024-01-11 15:40] VITALS: BP 147/84; PULSE 66
[2024-01-18 14:08] VITALS: BP 126/84; PULSE 74
== END 2024-01-20 23:59 | disposition home or self-care (01) ==
LOC: CR 13:57
PROVIDERS: PCP Nurse Practitioner Family; Visit Provider Internal Medicine Cardiovascular Disease
DX: R69 Illness, unspecified (principal)

== ENCOUNTER → 2024-01-21 00:18 | Outpatient (CLI) | payer MEDICARE, BC, SELFPAY ==
--- NOTE | 2024-01-21 07:15 | DI.DEXA_ITS ---
Exam(s) XR DEXA BONE DENSITY W/WO SAMANTHA EXAM: XR DEXA BONE DENSITY W/WO SAMANTHA CLINICAL HISTORY: screening for osteoporosis in postmenopausal woman,z78.0 TECHNIQUE: HoloGlow Horizon C densitometer analysis of left hip, lumbar spine and left forearm. Lat eral survey image of the thoracic and lumbar spine. COMPARISON: No exams were available for comparison FINDINGS: Lateral view of the thoracic and lumbar spine shows no evidence of compression fractures. Bone mineral density measurements of the lumbar spine correspond to a total T-score of -3.6, in the osteoporotic range. Bone mineral density measurements of the left hip correspond to a total T-score of -2.6, in the oste oporotic range.. The femoral neck T-score is -2.2. Theleft forearm bone mineral density measurements correspond to a T-score of the distal 3rd of -4.2, in the osteoporotic range. . IMPRESSION: Osteoporosis of the spine, hip and forearm.
--- NOTE | 2024-01-21 07:15 | DI.MAMMO_ITS ---
Exam(s) MAMMO SCREENING EXAM: MAMMO SCREENING CLINICAL HISTORY: screening,z12.39 TECHNIQUE: Bilateral full field digital CC and MLO mammographic images were obtained with 3D tomosyn thesis and utilizing computer aided detection (CAD). COMPARISON: Available for comparison. FINDINGS: Masses/Architectural Distortion: None seen. Microcalcifications: No suspicious pleomorphic-type are seen. Skin Thickening/Nipple Retraction: None. IMPRESSION: 1. No significant interval change with no specific features of malignancy noted. 2. Unless there is more urgent need, screening mammography is recommended, as per [employer] guidelines. BI-RADS Category 1 - Negative Breast Density - Category C - Heterogeneously dense Breast density category C or D implies that the patient has dense breast tissue. Dense breast tissue is very common and is not abnormal but dense breast tissue can make it harder to find cancer on a ma mmogram. Also, dense breast tissue may increase their breast cancer risk. This information about the result of the mammogram report was provided to the patient to raise their awareness. Use this report when you speak with the patient about their risks for breast cancer, which includes their family hist ory. At that time, you may recommend for more screening tests (Ultrasound or MRI) as they might be us eful based on their risk. A negative radiographic report should not delay biopsy if a dominant or clinically suspicious mass is present. Up to ten percent of cancers are not identified on mammography. A negative report may reinforce clinical impression. Adenosis and dense breasts may obscure an underlying neoplasm. False positive reports average 6 to 10%. Patient will receive a letter notifying them of these results.
== END ==
PROVIDERS: PCP Nurse Practitioner Family; Visit Provider Nurse Practitioner Family
DX: Z12.31 Encounter for screening mammogram for malignant neoplasm of breast (principal); Z78.0 Asymptomatic menopausal state; Z13.820 Encounter for screening for osteoporosis; M81.0 Age-related osteoporosis without current pathological fracture
CPT/HCPCS: 77063; 77067; 77080

== ENCOUNTER → 2024-01-27 03:01 | Outpatient (CLI) | payer MEDICARE, BC, SELFPAY ==
[2023-09-16 14:13] VITALS: BP 121/76; PULSE 66
[2023-09-28 14:19] VITALS: BP 116/70; PULSE 73
[2023-10-26 14:48] VITALS: BP 141/82; PULSE 74
[2023-10-28 14:00] VITALS: BP 122/73; PULSE 68
[2023-11-02 14:01] VITALS: BP 128/78; PULSE 79
[2023-11-11 14:09] VITALS: BP 146/76; PULSE 65
[2023-11-18 14:03] VITALS: BP 140/81; PULSE 69
[2023-11-30 14:28] VITALS: BP 139/78; PULSE 78
[2024-01-13 14:00] VITALS: BP 131/78; PULSE 67
[2024-01-25 14:02] VITALS: BP 134/76; PULSE 85
--- NOTE | 2024-01-27 12:30 | DI.US_ITS ---
APPROVED REPORT EXAM: Comprehensive 2D, Doppler, and color-flow Echocardiogram Patient Location: Out-Patient Legal Aide: Meño Rivas RDCS (AE) Indications: S/P TAVR, chest pain, aortic stenosis Conclusion Normal left ventricular wall thickness and chamber size. Ejection fraction is 55%. Wall motion is n ormal Normal right ventricular size and function Mildly dilated left atrium. Right atrial size is normal There is a bioprosthetic aortic valve. There is mild to moderate paravalvular Tatian. The mean grad ient is 21.39 peak gradient 42.44 Hg Estimated right ventricular systolic pressure is 31 mm Hg Wall motion Left Ventricle The left ventricle is normal size. The left ventricular systolic function is normal. The left ventric ular ejection fraction is within the normal range. There is normal left ventricular wall thickness. T here is normal LV segmental wall motion. There is no ventricular septal defect visualized. LVEF is 53 -57%. Right Ventricle The right ventricle is normal size. The right ventricular systolic function is normal. Atria Left atrium is mildly dilated. The right atrium size is normal. The interatrial septum is intact with no evidence for an atrial septal defect. Aortic Valve Patient has TAVR. Peak aortic valve gradient is 42.44 mmHg. Highest mean aortic valve gradient is 21. 39 mmHg. Calculated ELIZ by the continuity equation is 1.1 cm2. Mild to moderate paravalvular regurgit ation. Mitral Valve The mitral valve is normal in structure. No evidence of mitral valve stenosis. Mild mitral regurgitat ion. Tricuspid Valve The tricuspid valve is normal in structure. There is no tricuspid valve stenosis. Mild tricuspid regu rgitation. The RVSP is 31.0 mmHg. Pulmonic Valve The pulmonary valve is normal in structure. There is no pulmonic valvular stenosis. Trace pulmonic re gurgitation. Great Vessels The aortic root is normal in size. The ascending aorta is mildly dilated. Aortic arch is normal in ca liber. IVC is normal in size and collapses >50% with inspiration. Pericardium There is no pericardial effusion. 2D Dimensions IVSD d PLAX 0.80 cm F: 0.6-1.0 Ao Root d 3.02 cm F: 2.7 - 3.3 LVPW d PLAX 0.80 cm F: 0.6 - 1.0 Ao Asc Diam d 3.48 cm F: 2.3 - 3.1 LVID d PLAX 4.93 cm F: 3.8 - 5.2 LVDs 3.45 cm F: 2.2 - 3.5 LV EF Teichholz 57.0 % FS 29.96 % LV EDV (Teich) 114.5 mL LV ESV (Teich) 49.3 mL Stroke Vol Index (Teich) 38.60 M-Mode TAPSE 1.73 cm (M/F) >1.7 Auto EF LV EDV A4C 107.4 mL LV EDV A2C LV EDV BP LV ESV A4C 46.3 mL LV ESV A2C LV ESV BP LVEF(%) A4C 56.9 % LVEF(%) A2C LVEF(%) BP LV SV A4C 61.1 ml LV SV A2C LV SV BP LV CO A4C 4.0 L/min LV CO A2C LV CO BP HR A4C 64.98 BPM HR A2C LV EDV Index (BP) LV Volumes - Method of Disks (Preciado's) Single Plane 2D LV Volumes Biplane 2D LV Volumes LV EDV A2C 83.0 mL LV EDV BP Index LV ESV A2C 38.7 mL SV BP LVEF(%) A2C 53.4 % SV Index LA Volume LA Length A4C LA Length A2C 5.5 cm LA Area A4C s LA Area A2C s 15.35 cm2 LA Vol A4C A-L LA Vol A2C A-L 36.54 mL LA Vol Biplane A-L LA Vol A4C MOD LA Vol A2C MOD 33.8 mL LA Vol BP MOD RA Volume RA Area A4C 9.1 cm2 RA ESV A4C (A-L) 17.4mL RA Vol/BSA A4C A-L RA Length A4C 4.1 cm RA ESV A4C (MOD) 16.3mL LV Diastology MV E' medial 0.064 (>0.07 m/s) MV E Vmax 0.87 (0.4-1.3 m/s) MV E/E' MED 13.51 (<14) MV A Vmax 1.00 (0.4-1.3 m/s) MV E' lateral 0.082 (>0.1 m/s) E/A Ratio 0.9 MV E/E' LAT 10.57 (<14) MV E' Average 0.073 m/s MV E/E'(average) 11.86 Aortic Valve AoV Vmax 3.26 m/s LVOT Vmax 1.30 m/s AoV Peak Grad 70.8 mmHg LVOT Peak Grad 6.7 mmHg AoV Area (Vmax) 0.89 cm2 LVOT VTI 0.332 m AoV VTI 0.706 m LVOT Mean Grad 3.9 mmHg AoV Mean Eliazar. 2.15 m/s LVOT SV 74.25 mL AoV Mean Grad 21.4 mmHg LVOT Diam s 1.65 cm AoV Area (VTI) 1.05 cm2 AV Regurg Peak Gr. 99.25 mmHg Velocity Ratio 0.40 AR Decel [place] 3.3m/sec2 AR DT 1502 msec AR PHT 436 msec AR Vmax 4.98 m/s Mitral Valve MV DT 139 (160-240 msec) Pulmonary Valve PV Vmax 1.71 (0.5-1.5 m/s) RVOT Vmax 0.45 m/s PV Peak Grad 11.7 mmHg RVOT Peak Gr. 0.8 mmHg PV Mean Eliazar 1.05 m/s RVOT VTI 0.104 m PV Mean Grad 5.8 mmHg RVOT Mean Gr. 0.5 mmHg Tricuspid Valve RA Pressure 3.00 mmHg TR Vmax 2.64 m/s TR Peak Grad 27.9 mmHg RVSP (TR) 31.0 mmHg
== END ==
PROVIDERS: PCP Nurse Practitioner Family; Visit Provider Internal Medicine Cardiovascular Disease
DX: R07.9 Chest pain, unspecified (principal); I35.0 Nonrheumatic aortic (valve) stenosis
CPT/HCPCS: 93306

== ENCOUNTER 2024-02-04 02:02 | Outpatient (CLI) | payer MEDICARE, BC, SELFPAY ==
[2024-02-04 12:55] LABS: ALT 25 U/L (14-59); AST 33 U/L (15-37); Albumin 3.8 g/dL (3.4-5.0); Alkaline Phosphatase 96 U/L (46-116); Anion Gap 7.8 mmol/L (3-11); BUN 21 mg/dL (7-18); Bilirubin, Total 0.7 mg/dL (0.2-1.0); CO2 30.2 mmol/L (21.0-32.0); CREATININE 0.8 mg/dL (0.55-1.02); Calcium 9.1 mg/dL (8.5-10.1); Calculated LDL 126 mg/dL (<100); Chloride 104 mmol/L (98-107); Cholesterol 211 mg/dL (<200); Estimated GFR 77.75 (mL/min/1.73m2); Glucose 95 mg/dL (74-106); HDL Cholesterol 67 mg/dL (40-60); Potassium 3.8 mmol/L (3.5-5.1); Sodium 142 mmol/L (136-145); Total Protein 7.2 g/dL (6.4-8.2); Triglyceride 92 mg/dL (<150)
[2024-02-04 19:03] LABS: HIV-1/2 Ag & Ab Screen Negative (Negative)
[2024-02-04 19:45] LABS: Hepatitis C Ab w Rflx HCV PCR Negative (Negative)
== END 2024-02-04 02:03 | disposition home or self-care (01) ==
LOC: LOS 02:02
PROVIDERS: PCP Nurse Practitioner Family; Visit Provider Nurse Practitioner Family
DX: E78.2 Mixed hyperlipidemia (principal); Z11.4 Encounter for screening for human immunodeficiency virus [HIV]; Z11.59 Encounter for screening for other viral diseases
CPT/HCPCS: 36415; 80053; 80061; 86803; 87389

== ENCOUNTER → 2024-02-15 13:27 | Outpatient (BNVA) | payer MEDICARE, BC, SELFPAY | PROVIDERS: PCP Nurse Practitioner Family; Referring Provider Nurse Practitioner Family; Visit Provider Internal Medicine Cardiovascular Disease | DX: Z95.2 Presence of prosthetic heart valve (principal) | CPT/HCPCS: 99213 ==

== ENCOUNTER 2024-02-17 14:07 | Outpatient (RCR) | payer SELFPAY ==
[2024-01-21 00:03] VITALS: BP 128/76; PULSE 69
[2024-01-27 14:37] VITALS: BP 137/73; PULSE 68
[2024-02-01 14:05] VITALS: BP 134/78; PULSE 67
[2024-02-03 14:22] VITALS: BP 120/71; PULSE 75
[2024-02-08 14:00] VITALS: BP 148/77; PULSE 61
[2024-02-15 15:55] VITALS: BP 134/77; PULSE 65
[2024-02-17 14:16] VITALS: BP 127/74; PULSE 68
== END 2024-02-20 23:59 | disposition home or self-care (01) ==
LOC: CR 14:07
PROVIDERS: PCP Nurse Practitioner Family; Visit Provider Internal Medicine Cardiovascular Disease
DX: R69 Illness, unspecified (principal)

== ENCOUNTER 2024-03-21 13:53 | Outpatient (RCR) | payer SELFPAY ==
[2024-02-22 14:21] VITALS: BP 117/75; PULSE 69
[2024-02-29 14:06] VITALS: BP 132/81; PULSE 72
[2024-03-02 13:59] VITALS: BP 131/76; PULSE 64
[2024-03-07 14:02] VITALS: BP 120/71; PULSE 76
[2024-03-09 14:02] VITALS: BP 128/71; PULSE 69
[2024-03-14 14:09] VITALS: BP 119/71; PULSE 77
[2024-03-16 14:16] VITALS: BP 127/76; PULSE 66
[2024-03-21 14:00] VITALS: BP 122/70; PULSE 82
== END 2024-03-21 23:59 | disposition home or self-care (01) ==
LOC: CR 13:53
PROVIDERS: PCP Nurse Practitioner Family; Visit Provider Internal Medicine Cardiovascular Disease
DX: R69 Illness, unspecified (principal)

== ENCOUNTER 2024-04-20 15:23 | Outpatient (RCR) | payer SELFPAY ==
[2024-03-22 00:30] VITALS: BP 122/70; PULSE 82
[2024-03-23 14:20] VITALS: BP 125/71; PULSE 67; O2SAT 94
[2024-03-28 14:25] VITALS: BP 134/75; PULSE 66
[2024-03-30 14:37] VITALS: BP 134/78; PULSE 73
[2024-04-04 14:58] VITALS: BP 122/74; PULSE 62
[2024-04-06 14:02] VITALS: BP 132/67; PULSE 69
[2024-04-12 10:09] VITALS: BP 156/64; PULSE 79
[2024-04-13 14:39] VITALS: BP 126/74; PULSE 80
[2024-04-18 14:42] VITALS: BP 122/72; PULSE 71
[2024-04-20 15:29] VITALS: BP 141/81; PULSE 65
== END 2024-04-21 23:59 | disposition home or self-care (01) ==
LOC: CR 15:23
PROVIDERS: PCP Nurse Practitioner Family; Visit Provider Internal Medicine Cardiovascular Disease
DX: R69 Illness, unspecified (principal)

== ENCOUNTER 2024-04-27 14:05 | Outpatient (RCR) | payer SELFPAY ==
[2024-04-25 14:07] VITALS: BP 124/69; PULSE 70
[2024-04-27 14:11] VITALS: BP 125/71; PULSE 72
== END 2024-05-21 23:59 | disposition home or self-care (01) ==
LOC: CR 14:05
PROVIDERS: PCP Nurse Practitioner Family; Visit Provider Internal Medicine Cardiovascular Disease
DX: R69 Illness, unspecified (principal)

== ENCOUNTER → 2024-05-08 09:46 | Outpatient (CLI) | payer MEDICARE, BC, SELFPAY ==
--- NOTE | 2024-05-08 15:30 | DI.RAD_ITS ---
Exam(s) XR HIP RT COMPLETE AP PELVIS EXAM: XR HIP RT COMPLETE AP PELVIS CLINICAL HISTORY: M81.0 Age-related osteoporosis w.o current pathological FX, M89.8X8 bone. TECHNIQUE: 2D digital imaging was performed. COMPARISON: No exams were available for comparison FINDINGS: Two views. No evidence of pelvic nor hip fracture. No hip joint space narrowing. SI joints unremarkable. Bone density age-appropriate IMPRESSION: No acute osseous findings. No fractures evident. DATA REPOSITORY: RADIATION DOSE DELIVERED:
--- NOTE | 2024-05-08 17:28 | DI.VRAD_ITS ---
PROCEDURE INFORMATION: Exam: XR Right Hip Exam date and time: 05/08/2024 4:20 PM Age: 74 years old Clinical indication: Injury or trauma; Blunt trauma (contusions or hematomas); Right; Hip; Patient HX: Age-related osteoporosis w. O current pathological FX, disorders -- fall 04/24/24 R/O pelvic FX R TECHNIQUE: Imaging protocol: Radiologic exam of the right hip. Views: 2 or 3 views hip with pelvis when performed. COMPARISON: CT CHEST PE ABD PELVIS W 02/03/2021 5:07 AM FINDINGS: Bones/joints: There is slight cortical malalignment in the intertrochanteric region of the right femur concerning for mildly displaced acute fracture, best visualized on the lateral view. Osseous alignment is otherwise normal. No significant arthritic change Soft tissues: Unremarkable. IMPRESSION: Suspected intertrochanteric right femur fracture. Further evaluation with CT recommended. Dictated and Authenticated by: Norm Arreola MD. Ordering:DEMETRI Yen MD
== END ==
PROVIDERS: PCP Nurse Practitioner Family; Visit Provider Family Medicine
DX: M81.0 Age-related osteoporosis without current pathological fracture (principal); M25.551 Pain in right hip; M79.604 Pain in right leg
CPT/HCPCS: 73502

== ENCOUNTER 2024-05-08 19:19 | Emergency (ER) | payer MEDICARE, BC, SELFPAY ==
[2024-05-08 19:22] VITALS: BP 143/86; PULSE 109; RESP 16; TEMP 36.6; O2SAT 96
--- NOTE | 2024-05-08 19:30 | DI.CT_ITS ---
Exam(s) CT PELVIC WO EXAM: CT PELVIC WO CLINICAL HISTORY: Fall, 2 weeks ago right hip pain. TECHNIQUE: Imaging Protocol: Axial computed tomography images with coronal and sagittal reformatted images were created and reviewed CONTRAST MATERIAL: Intravenous: none Oral: None COMPARISON: CT CT CHEST PE ABD PELVIS W from 02/03/2021 FINDING: PELVIS: OSSEOUS: No pelvic nor hip fractures evident.No significant osseous lesions evident.No evidence of av ascular necrosis. Minimal degenerative change. Sacroiliac joints unremarkable. ANTERIOR ABDOMINAL WALL/GI:No evidence of significant anterior abdominal wall nor inguinal hernia in the pelvis evident.No obvious bowel obstruction. No evidence of appendicitis.No evidence of acute si gmoid diverticulitis.No free fluid in the pelvis. LYMPH NODES: There is no intrapelvic nor inguinal adenopathy. URINARY BLADDER: No calculi nor obvious masses evident REPRODUCTIVE: Uterus and adnexal regions unremarkable.. IMPRESSION: 1. No evidence of pelvic nor hip fracture. 2. No abnormal soft tissue findings. RADIATION DOSE DELIVERED: Total DLP DATA REPOSITORY: All CT scans at this facility are submitted to the National Radiology Data Registry (NRDR) Dose Index Registry (DIR) with the [employer] (A[employer]). RADIATION OPTIMIZATION: All CT scans at this facility use at least one of these dose optimization te chniques: automated exposure control; mA and/or kV adjustment per patient size (includes targeted exa ms where dose is matched to clinical indication); or iterative reconstruction.
--- NOTE | 2024-05-08 19:39 | ED.GENADUL_ITS ---
Discharge Plan Disposition Patient Disposition: Home Condition: Stable Discharge Details Clinical Impression: Traumatic hematoma of right hip, Other sprain of right hip, subsequent encounter Primary Care Provider: Todd Bowling ED Provider: Brittny Rodriguez Home Meds and New Rx's Prescriptions: Continued sertraline 50 mg tablet 50 mg PO DAILY Qty: 90 3RF Rx Instructions: lisinopril-hydrochlorothiazide [Zestoretic] 10-12.5 mg tablet 1 tab PO DAILY Qty: 90 4RF acyclovir 400 mg tablet 400 mg PO BID PRN (Reason: cold sores) Qty: 20 4RF aspirin 81 mg tablet,delayed release (DR/EC) 81 mg PO DAILY Qty: 90 4RF loratadine [Allergy Relief (loratadine)] 10 mg tablet 10 mg PO DAILY PRN (Reason: allergies) Qty: 90 4RF cholecalciferol (vitamin D3) 1,000 UNIT capsule 1,000 unit PO DAILY amoxicillin 500 mg capsule 2,000 mg PO ONCE Qty: 4 0RF Rx Instructions: Take 1 hour before appointment for epistaxis pravastatin 40 mg tablet 40 mg PO HS Qty: 90 4RF Discharge Instructions Instructions: Taking care of bruises, Preventing Falls ED Additional Instructions: At this time CT shows no evidence for acute fracture or broken bones. Apply ice up to 3 times daily for the next few days. Use a walker as needed. You may con tinue with the Tylenol as previously taking. Follow-up with your primary care provider as previously scheduled. Return to the ER for any worsening abdominal pain, chest pain, problems urinating or blood in your urine, vomiting, headache, confusion, blurry vision, neck pain, feeling, as if your neck is unstable, or any concerns. Follow up with primary care provider as previously scheduled. Return to ED sooner if any worsening or concerns. Referrals: Todd Bowling, [facility] [Primary Care Provider] - 2 weeks HPI General Mode of arrival: ambulatory . Date/Time Provider Initiated Documentation: 05/08/24 19:24 . Limitations to Documentation: no limitations . Information obtained by: patient, RN notes reviewed and old records reviewed . HPI Narrative: 74-year-old female presents to the ER from [facility] for right hip pain and for further evaluation via CT scan after having pelvic and hip x-rays today. Patient reports that she fell on [address] after being knocked down by her dogs. She does take 81 mg aspirin daily. She does have ecchymosis and hematoma noted to her right lateral thigh is complaining of right groin pain. She was ambulatory in the department upon arrival. She reports that she has been taking Tylenol for pain. She does have a past medical history of aortic valve replacement, humerus fracture, skin cancer and endometrial biopsy. No other associated symptoms or concerns at this time. Denies any headache, neck pain back pain, denies dizziness, lightheadedness she is alert and oriented x 4, slightly hard of hearing. She does have hearing aids in. Related Data Home Medications Medication Instructions Recorded Confirmed cholecalciferol (vitamin D3) 25 1,000 unit PO DAILY 04/19/13 05/08/24 mcg (1,000 unit) capsule amoxicillin 500 mg capsule 2,000 mg (4 x 500 mg) PO ONCE #4 12/08/23 05/08/24 caps acyclovir 400 mg tablet 400 mg PO BID PRN cold sores #20 12/13/23 05/08/24 tab-caps aspirin 81 mg tablet,delayed 81 mg PO DAILY #90 tabs 12/13/23 05/08/24 release lisinopril 10 1 tab PO DAILY #90 tab-caps 12/13/23 05/08/24 mg-hydrochlorothiazide 12.5 mg tablet (Zestoretic) loratadine 10 mg tablet (Allergy 10 mg PO DAILY PRN allergies #90 12/13/23 05/08/24 Relief (loratadine)) tabs sertraline 50 mg tablet 50 mg PO DAILY #90 tabs 12/13/23 05/08/24 pravastatin 40 mg tablet 40 mg PO HS #90 tab-caps 03/06/24 05/08/24 Previous Rx's Medication Instructions Recorded amoxicillin 500 mg capsule 2,000 mg (4 x 500 mg) PO ONCE #4 12/08/23 caps acyclovir 400 mg tablet 400 mg PO BID PRN cold sores #20 12/13/23 tab-caps aspirin 81 mg tablet,delayed 81 mg PO DAILY #90 tabs 12/13/23 release lisinopril 10 1 tab PO DAILY #90 tab-caps 12/13/23 mg-hydrochlorothiazide 12.5 mg tablet (Zestoretic) loratadine 10 mg tablet (Allergy 10 mg PO DAILY PRN allergies #90 12/13/23 Relief (loratadine)) tabs sertraline 50 mg tablet 50 mg PO DAILY #90 tabs 12/13/23 pravastatin 40 mg tablet 40 mg PO HS #90 tab-caps 03/06/24 Allergies Allergy/AdvReac Type Severity Reaction Status Date / Time IV contrast Allergy Intermediate Skin Rash Uncoded 05/08/24 19:33 General Stated Complaint: Orthopedic JOSEFA: 3 Review of Systems All systems reviewed & are unremarkable except as noted in HPI and below Constitutional Constitutional: Denies frequent falls and Denies headache(s) ENT Ears, Nose, Mouth, and Throat: Reports abnormal hearing, Denies vertigo, Denies dizziness, Denies headache(s) and Denies neck pain Cardiovascular Cardiovascular: Denies syncope Musculoskeletal Musculoskeletal: Reports as per HPI, Denies back pain, Reports arthralgias, Denies neck pain and Reports stiffness Integumentary/Breasts Skin/Breast: Reports unusual bruising (Dependent ecchymosis noted to RLE from a fall 10 days ago) Neurologic Neurologic: Reports system reviewed and no additional complaints, except as documented, Reports abnormal hearing, Denies confusion, Denies vertigo, Denies dizziness, Denies syncope, Denies frequent falls and Denies headache(s) Psychiatric Psychiatric: Denies confusion Hematologic/Lymphatic Hematologic/Lymphatic: Reports easy bruising (Takes Aspirin) Exam Narrative Exam Narrative: General: Well Developed, Awake and Alert, conversant. Skin: Warm and Dry HEENT: Head: No palpable deformities, Normocephalic Eyes: Pupils PERRLA, EOM's intact. No periorbital eccymosis or step off Neck: No midline tenderness, no step off, no deformity to palpation of C-spine. Trachea midline. Chest: No surface trauma. Nontender without crepitus or deformity. Lungs clear to ausculatation bilaterally. Heart: RRR, no rubs, murmurs or gallop. Abdomen: No abrasions, ecchymosis, or surface trauma. Nondistended. Nontender to palpation no guarding, rebound, or rigidity. Pelvis: Femoral pulses strong and equal Extremities: Right groin pain with movement, Sensation intact. Peripheral pulses intact and equal. Large Ecchymosis and healing hematoma noted to her right lateral thigh, no erythema, no induration or signs of infection, Distal pulses intact, Neuro: ANO x4, GCS 15, cranial nerves II through XII intact. Motor and sensory exam nonfocal. Reflexes are symmetric. Course Vital Signs Vital signs: Vital Signs Temperature 36.6 C 05/08/24 19:22 Pulse 109 H 05/08/24 19:22 Respiratory Rate 16 05/08/24 19:22 Blood Pressure 143/86 H 05/08/24 19:22 Pulse Oximetry 96 05/08/24 19:22 Temperature 36.6 C 05/08/24 19:22 Temperature Source Temporal Artery Scan 05/08/24 19:22 Pulse 109 H 05/08/24 19:22 Respiratory Rate 16 05/08/24 19:22 Respiratory Effort Normal 05/08/24 19:32 Blood Pressure 143/86 H 05/08/24 19:22 Pulse Oximetry 96 05/08/24 19:22 Oxygen Delivery Method Room Air 05/08/24 19:22 Oxygen Flow Rate 0 05/08/24 19:22 Pain Level 3 05/08/24 19:22 Medical Decision Making 74-year-old female presents to the ER from [facility] for right hip pain and for further evaluation via CT scan after having pelvic and hip x-rays today. Patient reports that she fell on April 28 after being knocked down by her dogs. She does take 81 mg aspirin daily. She does have ecchymosis and hematoma noted to her right lateral thigh is complaining of right groin pain. She was ambulatory in the department upon arrival. She reports that she has been taking Tylenol for pain. She does have a past medical history of aortic valve replacement, humerus fracture, skin cancer and endometrial biopsy. No other associated symptoms or concerns at this time. Denies any headache, neck pain back pain, denies dizziness, lightheadedness she is alert and oriented x 4, slightly hard of hearing. She does have hearing aids in. CT pelvis, RLE ordered to include femur, labs ordered including PT and INR pending CT and orthopedic consult. CT pelvis is negative for acute fracture, CT femur is also within normal limits. Questionable patellar subluxation however that is not asked appreciated on physical exam. Patient is able to bend her knee without difficulty. Labs are largely unremarkable red blood cell 3.77, hemoglobin hematocrit within normal limits, INR also within normal limits, glucose 116. Discussed results home care and strict return instructions with patient and family who verbalized understanding. This text was generated using [employer]emn[employer] dictation system, please disregard any oddities of phrase or misspellings. Medical Records Medical records reviewed: Yes I reviewed the patient's medical records. Imaging Data Radiologic Study: Imaging: CT Scan Radiologist's impression: TECHNIQUE: Imaging protocol: CT of the right lower extremity without contrast was performed. Exam focused on the thigh. COMPARISON: CT PELVIC WO 05/08/2024 8:04 PM FINDINGS: Bones/joints: Moderate lateral patellar subluxation. Osseous alignment is otherwise normal. No acute fracture. Mild degenerative changes in the right knee. Soft tissues: Normal. Vasculature: Diffuse atherosclerotic calcification of the right femoral arteries. IMPRESSION: No acute fracture. Lateral patellar subluxation, possibly chronic and/or positional Thank you for allowing us to participate in the care of your patient. Dictated and Authenticated by: Norm Arreola MD Radiologic Study #2: Imaging: CT Scan Radiologist's impression: Imaging protocol: Computed tomography of the pelvis without contrast. Exam focused on the skeleton. COMPARISON: CT CHEST PE ABD PELVIS W 02/03/2021 5:07 AM FINDINGS: Bones/joints: Unremarkable. No acute fracture. No dislocation. Soft tissues: Unremarkable. IMPRESSION: No acute findings. Thank you for allowing us to participate in the care of your patient. Dictated and Authenticated by: Norm Arreola MD Lab Data Lab results reviewed: Yes I reviewed the patient's lab results. Labs: Laboratory Tests Range/Units 05/08/24 05/08/24 20:20 20:45 WBC (4.4-10.8) 10^3/uL 6.79 RBC (3.93-5.22) 10^6/uL 3.77 L Hgb (11.2-15.7) g/dL 11.7 Hct (36.0-46.0) % 36.0 MCV (80-95) fL 96 H MCH (27.0-33.0) pg 31.0 MCHC (32.0-36.0) % 32.5 RDW (11.7-14.6) % 13.2 Plt Count (130-400) 10^3/uL 243 MPV (8.0-11.0) fL 10.9 Immature Gran % % 0.1 Neutrophils % % 76.3 Lymphocytes % % 13.7 Monocytes % % 7.8 Eosinophils % % 1.5 Basophils % % 0.6 Nucleated RBC % (0.0-0.3) % 0.0 Absolute Neutrophils (1.2-6.7) 10^3/uL 5.18 Absolute Lymphocytes (1.2-3.4) 10^3/uL 0.93 L Absolute Monocytes (0.1-0.8) 10^3/uL 0.53 Absolute Eosinophils (0.0-0.7) 10^3/uL 0.10 Absolute Basophils (0.0-0.2) 10^3/uL 0.04 PT (9.1-11.1) sec 9.4 INR (0.9-1.1) 0.9 Sodium Cancelled 142 Potassium Cancelled 3.7 Chloride Cancelled 103 Carbon Dioxide Cancelled 30.1 Anion Gap Cancelled 8.9 BUN Cancelled 15 Creatinine Cancelled 0.9 Est GFR (CKD-EPI 2020) Cancelled 67.08 Glucose Cancelled 116 H Calcium Cancelled 9.0 Total Bilirubin Cancelled 0.7 AST Cancelled 33 ALT Cancelled 23 Alkaline Phosphatase Cancelled 114 Total Protein Cancelled 7.1 Albumin Cancelled 3.8 Quality:SDOH Health Related Social Needs: Health related social needs inadequate housing Health related social needs details N/A PFSH All Active Problems (Updated 05/08/24 @ 20:46 by Brittny Rodriguez NP) Other sprain of right hip, subsequent encounter (Acute) Traumatic hematoma of right hip (Acute) Osteoporosis (Chronic) Dexa January 2024 T score -4 radius Hematoma of leg (Acute) Right knee pain (Acute) Bony pelvic pain (Acute) Fall (Acute) Anterior epistaxis (Acute) Actinic keratoses (Acute) Joint swelling (Acute) middle finger Sensorineural hearing loss (Acute) Epistaxis, recurrent (Acute) Overgrown toenails (Acute) Excessive cerumen in both ear canals (Acute) Chest pain (Acute) Elevated LFTs (Acute) Tachycardia (Acute) Aortic stenosis (Chronic) TAVR [place] [facility] [place]. Sosa 03/05/21 Leukocytosis (Acute) Chest pain (Acute) Depression with anxiety (Acute) Skin lesion of neck (Acute) Encounter for annual physical exam (Acute Unknown) Nasal dryness (Acute) Onychomycosis (Acute) Sensorineural hearing loss of both ears (Chronic) Allergic rhinitis (Chronic) Presbycusis, bilateral (Acute 11/05/16) Lipoma of back (Chronic 11/01/14) scapula left, mri 2006 Hyperlipidemia (Acute 10/10/12) Herpes simplex (Acute) oral Heart murmur (Acute 10/17/13) echo 2013 [facility] [place] Essential hypertension (Acute 10/16/13) Abnormal auditory perception (Acute 05/23/15) Medical History Viral respiratory illness Closed fracture of humerus (10/21/01) Malignant neoplasm of skin Postmenopausal bleeding (10/10/12) Surgical History Heart valve replaced aortic valve 03/02/21 bovine transcatheter heart valve serial [id number] model [id number] Fracture, Open Treatment RIGHT ANKLE Endometrial Biopsy Tooth extraction Margarito Forbes DDS tooth and bone removal 07/01/17 Bilateral salpingectomy with oophorectomy Family History Mother , AGE 66 Breast cancer Father , AGE 85 Diabetes Heart disease Sister Melanoma Brother No problems noted. Son No problems noted. Maternal Grandfather No problems noted. Paternal Grandfather No problems noted. Maternal Grandfather No problems noted. Paternal Grandfather No problems noted. Social History Smoking/Tobacco Use Status: Never Second Hand Exposure: Yes Smoking risk assessment performed?: Yes Alcohol Intake: never Drug use: Never Substance use type: does not use Counseling given: No Counseling provided: none Adopted: No Caregiver/Support person: No Foster care: No Household members: spouse Housing: house Number of Children: 1 Communication Needs: Hard of Hearing and Corrective Lenses Education Level: high school Do you need help understanding health information?: Rarely current occupation: Retired Pets and animals: Yes (grand dogs stay occasionally) Pets and animals: dog(s) Do you think of yourself as: straight/heterosexual Current gender identity: female What is your relationship status?: How often do you talk on the phone with friends or family?: three or more times per week How often do you get together with friends or relatives?: once per week How often do you attend holiness or mandaeism services?: decline to answer Do you belong to any clubs or organized social groups?: yes Panel score (0-1 are the most socially isolated patients): 3 What type of physical activity do you participate in: none Duration: 45-60 minutes/day Frequency: 1-2 times per week Beba/Hoahaoism: None Special beba needs: No Seatbelt use: always Helmet use: No Drive intox or ride w/intox 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
--- NOTE | 2024-05-08 19:45 | DI.CT_ITS ---
Exam(s) CT LOWER EXTREMITY RT WO EXAM: CT LOWER EXTREMITY RT WO CLINICAL HISTORY: Fall, Eval Femur to knee. TECHNIQUE: Imaging Protocol: Axial computed tomography images with coronal and sagittal reformatted images were created and reviewed. CONTRAST MATERIAL: Intravenous: None COMPARISON: No exams were available for comparison FINDINGS: There is no evidence of fracture of the hip nor remainder of the femur. No osseous lesions. No sign ificant joint effusions. IMPRESSION: No evidence of right hip nor right femur fracture. RADIATION DOSE DELIVERED: Total DLP DATA REPOSITORY: All CT scans at this facility are submitted to the National Radiology Data Registry (NRDR) Dose Index Registry (DIR) with the [employer] (ACR). RADIATION OPTIMIZATION: All CT scans at this facility use at least one of these dose optimization te chniques: automated exposure control; mA and/or kV adjustment per patient size (includes targeted exa ms where dose is matched to clinical indication); or iterative reconstruction.
[2024-05-08 20:29] LABS: Abs Immature Grans 0.01 10^3/uL (0.0-0.06); Absolute Basophil Count 0.04 10^3/uL (0.0-0.2); Absolute Lymphocyte Count 0.93 10^3/uL (1.2-3.4); Absolute Monocyte Count 0.53 10^3/uL (0.1-0.8); Absolute Neutrophil Count 5.18 10^3/uL (1.2-6.7); Basophils % 0.6 %; Eosinophils % 1.5 %; HGB 11.7 g/dL (11.2-15.7); Immature Grans % 0.1 %; Lymphocytes % 13.7 %; MCHC 32.5 % (32.0-36.0); MCV 96 fL (80-95); MPV 10.9 fL (8.0-11.0); Monocytes % 7.8 %; Neutrophils % 76.3 %; Platelet Count 243 10^3/uL (130-400); RBC 3.77 10^6/uL (3.93-5.22); RDW 13.2 % (11.7-14.6); RDW-SD 45.9 fL; WBC 6.79 10^3/uL (4.4-10.8)
--- NOTE | 2024-05-08 20:30 | DI.VRAD_ITS ---
PROCEDURE INFORMATION: Exam: CT Pelvis Without Contrast; Skeletal Exam date and time: 05/08/2024 8:04 PM Age: 74 years old Clinical indication: Injury or trauma; Blunt trauma (contusions or hematomas); Right; Pelvic region; Injury date: Approx. 2 weeks ago; Injury details: Fall 2 weeks ago - hip pain TECHNIQUE: Imaging protocol: Computed tomography of the pelvis without contrast. Exam focused on the skeleton. COMPARISON: CT CHEST PE ABD PELVIS W 02/03/2021 5:07 AM FINDINGS: Bones/joints: Unremarkable. No acute fracture. No dislocation. Soft tissues: Unremarkable. IMPRESSION: No acute findings. Dictated and Authenticated by: Norm Arreola MD. Ordering:MAYI Mart MD
[2024-05-08 20:39] LABS: INR 0.9 (0.9-1.1); Prothrombin Time 9.4 sec (9.1-11.1)
--- NOTE | 2024-05-08 20:40 | DI.VRAD_ITS ---
PROCEDURE INFORMATION: Exam: CT Right Lower Extremity Without Contrast; Thigh Exam date and time: 05/08/2024 8:08 PM Age: 74 years old Clinical indication: Injury or trauma; Blunt trauma; Hip and thigh or upper leg; Right; Injury date: Approx. 2 weeks ago; Injury details: Fall eval femur - knee TECHNIQUE: Imaging protocol: CT of the right lower extremity without contrast was performed. Exam focused on the thigh. COMPARISON: CT PELVIC WO 05/08/2024 8:04 PM FINDINGS: Bones/joints: Moderate lateral patellar subluxation. Osseous alignment is otherwise normal. No acute fracture. Mild degenerative changes in the right knee. Soft tissues: Normal. Vasculature: Diffuse atherosclerotic calcification of the right femoral arteries. IMPRESSION: No acute fracture. Lateral patellar subluxation, possibly chronic and/or positional Dictated and Authenticated by: Norm Arreola MD. Ordering:MAYI Mart MD
[2024-05-08 21:05] LABS: ALT 23 U/L (14-59); AST 33 U/L (15-37); Albumin 3.8 g/dL (3.4-5.0); Alkaline Phosphatase 114 U/L (46-116); Anion Gap 8.9 mmol/L (3-11); BUN 15 mg/dL (7-18); Bilirubin, Total 0.7 mg/dL (0.2-1.0); CO2 30.1 mmol/L (21.0-32.0); CREATININE 0.9 mg/dL (0.55-1.02); Chloride 103 mmol/L (98-107); Estimated GFR 67.08 (mL/min/1.73m2); Glucose 116 mg/dL (74-106); Potassium 3.7 mmol/L (3.5-5.1); Sodium 142 mmol/L (136-145); Total Protein 7.1 g/dL (6.4-8.2)
== END 2024-05-08 21:12 | disposition home or self-care (01) ==
PROVIDERS: Emergency Provider Registered Nurse Emergency; PCP Nurse Practitioner Family
DX: S70.01XD Contusion of right hip, subsequent encounter (principal); S73.191D Other sprain of right hip, subsequent encounter; I10 Essential (primary) hypertension; Z95.2 Presence of prosthetic heart valve; Z79.82 Long term (current) use of aspirin; W18.39XA Other fall on same level, initial encounter; Y93.01 Activity, walking, marching and hiking; Y92.010 Kitchen of single-family (private) house as the place of occurrence of the external cause
CPT/HCPCS: 36415; 80053; 99284; 72192; 73502; 73700; 85025; 85610; 99283

== ENCOUNTER 2024-07-20 14:24 | Outpatient (RCR) | payer SELFPAY ==
[2024-06-27 14:18] VITALS: BP 154/78; PULSE 59
[2024-06-29 14:32] VITALS: BP 127/72; PULSE 80
[2024-07-04 13:58] VITALS: BP 121/70; PULSE 66
[2024-07-06 14:07] VITALS: BP 126/75; PULSE 69
[2024-07-11 14:18] VITALS: BP 129/76; PULSE 71
[2024-07-13 14:06] VITALS: BP 122/76; PULSE 74
[2024-07-18 14:21] VITALS: BP 126/69; PULSE 76
[2024-07-20 14:27] VITALS: BP 126/64; PULSE 68
== END 2024-07-22 23:59 | disposition home or self-care (01) ==
LOC: CR 14:24
PROVIDERS: PCP Nurse Practitioner Family; Visit Provider Internal Medicine Cardiovascular Disease
DX: R69 Illness, unspecified (principal)

== ENCOUNTER 2024-08-17 15:00 | Outpatient (RCR) | payer SELFPAY ==
[2024-07-23 00:18] VITALS: BP 126/64; PULSE 68
[2024-07-25 14:30] VITALS: BP 137/76; PULSE 84
[2024-07-27 13:54] VITALS: BP 134/74; PULSE 64; O2SAT 96
[2024-08-01 14:43] VITALS: BP 113/71; PULSE 76
[2024-08-03 14:18] VITALS: BP 125/69; PULSE 77
[2024-08-08 14:29] VITALS: BP 128/75; PULSE 75
[2024-08-10 15:10] VITALS: BP 126/71; PULSE 70
[2024-08-15 16:14] VITALS: BP 114/72; PULSE 84
[2024-08-17 14:00] VITALS: BP 122/73; PULSE 87
== END 2024-08-21 23:59 | disposition home or self-care (01) ==
LOC: CR 15:00
PROVIDERS: PCP Nurse Practitioner Family; Visit Provider Internal Medicine Cardiovascular Disease
DX: R69 Illness, unspecified (principal)

== ENCOUNTER 2024-09-21 14:08 | Outpatient (RCR) | payer SELFPAY ==
[2024-08-22 15:13] VITALS: BP 130/75; PULSE 71
[2024-08-24 14:07] VITALS: BP 118/71; PULSE 75; O2SAT 93
[2024-08-29 14:58] VITALS: BP 143/79; PULSE 70
[2024-08-31 14:08] VITALS: BP 126/65; PULSE 71
[2024-09-07 14:04] VITALS: BP 140/75; PULSE 76; O2SAT 96
[2024-09-12 14:26] VITALS: BP 138/80; PULSE 78
[2024-09-14 14:11] VITALS: BP 125/74; PULSE 74; O2SAT 96
[2024-09-19 14:43] VITALS: BP 138/81; PULSE 64
[2024-09-21 14:21] VITALS: BP 115/75; PULSE 75
== END 2024-09-21 23:59 | disposition home or self-care (01) ==
LOC: CR 14:08
PROVIDERS: PCP Nurse Practitioner Family; Visit Provider Internal Medicine Cardiovascular Disease
DX: R69 Illness, unspecified (principal)

== ENCOUNTER 2024-10-17 15:14 | Outpatient (RCR) | payer SELFPAY ==
[2024-09-22 00:36] VITALS: BP 115/75; PULSE 75
[2024-09-28 14:17] VITALS: BP 139/76; PULSE 84
[2024-10-03 14:17] VITALS: BP 128/77; PULSE 75
[2024-10-05 14:08] VITALS: BP 134/79; PULSE 71
[2024-10-10 15:48] VITALS: BP 125/75; PULSE 75
[2024-10-12 14:10] VITALS: BP 117/75; PULSE 76
[2024-10-17 15:16] VITALS: BP 120/79; PULSE 71
== END 2024-10-21 23:59 | disposition home or self-care (01) ==
LOC: CR 15:14
PROVIDERS: PCP Nurse Practitioner Family; Visit Provider Internal Medicine Cardiovascular Disease
DX: R69 Illness, unspecified (principal)

== ENCOUNTER 2024-11-21 14:12 | Outpatient (RCR) | payer SELFPAY ==
[2024-10-22 00:13] VITALS: BP 115/75; PULSE 75
[2024-10-24 15:12] VITALS: BP 123/74; PULSE 78
[2024-10-31 14:20] VITALS: BP 132/78; PULSE 69
[2024-11-02 14:13] VITALS: BP 133/79; PULSE 74
[2024-11-07 14:47] VITALS: BP 123/75; PULSE 72
[2024-11-09 14:22] VITALS: BP 142/79; PULSE 66
[2024-11-14 13:56] VITALS: BP 139/77; PULSE 70
[2024-11-16 14:00] VITALS: BP 139/77; PULSE 70
[2024-11-21 14:24] VITALS: BP 134/78; PULSE 71
== END 2024-11-21 23:59 | disposition home or self-care (01) ==
LOC: CR 14:12
PROVIDERS: PCP Nurse Practitioner Family; Visit Provider Internal Medicine Cardiovascular Disease
DX: R69 Illness, unspecified (principal)

== ENCOUNTER 2024-12-21 13:56 | Outpatient (RCR) | payer SELFPAY ==
[2024-11-22 00:23] VITALS: BP 115/75; PULSE 75
[2024-11-23 14:01] VITALS: BP 140/78; PULSE 65; O2SAT 94
[2024-11-28 14:17] VITALS: BP 104/66; PULSE 76
[2024-12-05 14:20] VITALS: BP 134/81; PULSE 68
[2024-12-07 14:24] VITALS: BP 125/76; PULSE 72
[2024-12-12 14:24] VITALS: BP 130/75; PULSE 67
[2024-12-14 14:11] VITALS: BP 136/81; PULSE 67; O2SAT 97
[2024-12-19 14:50] VITALS: BP 127/86; PULSE 74
[2024-12-21 13:58] VITALS: BP 138/77; PULSE 66; O2SAT 95
== END 2024-12-22 23:59 | disposition home or self-care (01) ==
LOC: CR 13:56
PROVIDERS: PCP Nurse Practitioner Family; Visit Provider Internal Medicine Cardiovascular Disease
DX: R69 Illness, unspecified (principal)

== ENCOUNTER 2025-01-10 02:25 | Outpatient (CLI) | payer MEDICARE, BC, SELFPAY ==
[2025-01-10 13:22] LABS: ALT 27 U/L (14-59); AST 30 U/L (15-37); Albumin 3.9 g/dL (3.4-5.0); Alkaline Phosphatase 107 U/L (46-116); Anion Gap 3.2 mmol/L (3-11); BUN 20 mg/dL (7-18); Bilirubin, Total 0.54 mg/dL (0.2-1.0); CO2 33.8 mmol/L (21.0-32.0); CREATININE 0.9 mg/dL (0.55-1.02); Calcium 9.6 mg/dL (8.5-10.1); Chloride 106 mmol/L (98-107); Estimated GFR 67.08 (mL/min/1.73m2); Glucose 103 mg/dL (74-106); Sodium 143 mmol/L (136-145)
[2025-01-10 14:32] LABS: Calculated LDL 103 mg/dL (<100); Cholesterol 190 mg/dL (<200); HDL Cholesterol 64 mg/dL (40-60); Triglyceride 117 mg/dL (<150)
== END 2025-01-10 02:26 | disposition home or self-care (01) ==
LOC: LOS 02:26
PROVIDERS: PCP Nurse Practitioner Family; Visit Provider Nurse Practitioner Family
DX: R00.0 Tachycardia, unspecified; I10 Essential (primary) hypertension; E78.5 Hyperlipidemia, unspecified
CPT/HCPCS: 36415; 80053; 80061

== ENCOUNTER 2025-01-16 02:04 | Outpatient (CLI) | payer MEDICARE, BC, SELFPAY ==
--- NOTE | 2025-01-16 07:00 | DI.MAMMO_ITS ---
Exam(s) MAMMO SCREENING EXAM: MAMMO SCREENING CLINICAL HISTORY: screening,z12.39 TECHNIQUE: Mammograms were interpreted according to the usual protocol including computer analysis w Rep CAD system, tomosynthesis and C-view imaging. COMPARISON: 2016 through 2023 FINDINGS: The breasts are composed of heterogeneously dense fibroglandular densities, Breast Density category C . No suspicious masses or suspicious microcalcifications are seen. No skin thickening or abnormal axillary lymph nodes are seen. There has been no significant change from prior exams. IMPRESSION: BI-RADS Category 1, Negative mammogram. Yearly screening mammography is recommended. Breast Density Category C, heterogeneously Dense. The mammogram demonstrates the patient's breast tissue is dense. Dense breast tissue is very common a nd is not abnormal but dense breast tissue can make it harder to find cancer on a mammogram. Also, de nse breast tissue may increase breast cancer risk. This information about the result of the mammogram report was provided to the patient to raise their awareness. Use this report when you speak with the patient about their risks for breast cancer, which includes their family history. At that time, you may recommend additional screening tests (Ultrasound or MRI) as they might be useful based on their r isk. A negative radiographic report should not delay biopsy if a dominant or clinically suspicious mass is present. Up to ten percent of cancers are not identified on mammography. A negative report may reinforce clinical impression. Adenosis and dense breasts may obscure an underlying neoplasm. False positive reports average 6 to 10%.
== END 2025-01-16 02:24 ==
LOC: DI 02:04
PROVIDERS: PCP Nurse Practitioner Family; Visit Provider Nurse Practitioner Family
DX: Z12.31 Encounter for screening mammogram for malignant neoplasm of breast (principal); R92.333 Mammographic heterogeneous density, bilateral breasts
CPT/HCPCS: 77063; 77067

== ENCOUNTER 2025-01-18 13:59 | Outpatient (RCR) | payer SELFPAY ==
[2024-12-26 14:33] VITALS: BP 136/75; PULSE 66
[2025-01-02 14:10] VITALS: BP 135/74; PULSE 83
[2025-01-11 14:37] VITALS: BP 140/76; PULSE 77
[2025-01-16 14:09] VITALS: BP 123/77; PULSE 68
[2025-01-18 14:13] VITALS: BP 133/82; PULSE 85
== END 2025-01-19 23:59 | disposition home or self-care (01) ==
LOC: CR 13:59
PROVIDERS: PCP Nurse Practitioner Family; Visit Provider Internal Medicine Cardiovascular Disease
DX: R69 Illness, unspecified (principal)

== ENCOUNTER 2025-02-15 14:22 | Outpatient (RCR) | payer SELFPAY ==
[2025-01-20 00:21] VITALS: BP 133/82; PULSE 85
[2025-01-23 14:31] VITALS: BP 118/69; PULSE 75
[2025-02-06 14:11] VITALS: BP 121/72; PULSE 74
[2025-02-08 14:28] VITALS: BP 121/71; PULSE 81
[2025-02-13 14:23] VITALS: BP 114/74; PULSE 71
== END 2025-02-19 23:59 | disposition home or self-care (01) ==
LOC: CR 14:22
PROVIDERS: PCP Nurse Practitioner Family; Visit Provider Internal Medicine Cardiovascular Disease
DX: R69 Illness, unspecified (principal)

== ENCOUNTER 2025-03-20 15:12 | Outpatient (RCR) | payer SELFPAY ==
[2025-02-20 00:09] VITALS: BP 133/82; PULSE 85
[2025-02-20 14:29] VITALS: BP 127/72; PULSE 75
[2025-02-27 13:55] VITALS: BP 125/77; PULSE 80; O2SAT 95
[2025-03-01 14:00] VITALS: BP 132/76; PULSE 65; O2SAT 93
[2025-03-06 14:10] VITALS: BP 118/71; PULSE 74
[2025-03-08 14:11] VITALS: BP 115/71; PULSE 71
[2025-03-13 14:34] VITALS: BP 122/75; PULSE 67
[2025-03-15 14:17] VITALS: BP 126/75; PULSE 74
[2025-03-20 15:15] VITALS: BP 121/76; PULSE 75
== END 2025-03-21 23:59 | disposition home or self-care (01) ==
LOC: CR 15:12
PROVIDERS: PCP Nurse Practitioner Family; Visit Provider Internal Medicine Cardiovascular Disease
DX: R69 Illness, unspecified (principal)

== ENCOUNTER 2025-03-22 08:14 | Outpatient (CLI) | payer SELFPAY ==
--- NOTE | 2025-03-22 08:00 | RT.EKG_ITS ---
APPROVED REPORT Exam: Resting ECG Reason for Exam: tachycardia Patient Location: O HR:70 bpm ECG Measurements Heart Rate 70 AXIS VA 157 P 38 QRSd 99 QRS -30 QT 385 T 6 QTc 416 Conclusion Sinus rhythm...normal P axis, V-rate 50- 99 Left anterior fascicular block early transition...QRS area>0 in V2 Baseline wander in lead(s) II,III,aVF
== END 2025-03-22 08:15 | disposition home or self-care (01) ==
LOC: DI.CARD 08:17
PROVIDERS: PCP Nurse Practitioner Family; Visit Provider Internal Medicine Cardiovascular Disease
DX: R00.0 Tachycardia, unspecified (principal); I35.0 Nonrheumatic aortic (valve) stenosis
CPT/HCPCS: 93010

== ENCOUNTER → 2025-03-22 13:04 | Outpatient (BNVA) | payer MEDICARE, BC, SELFPAY | PROVIDERS: PCP Nurse Practitioner Family; Visit Provider Internal Medicine Cardiovascular Disease | DX: I44.4 Left anterior fascicular block (principal); I35.0 Nonrheumatic aortic (valve) stenosis | CPT/HCPCS: 93005; 99213 ==

== ENCOUNTER 2025-04-19 14:00 | Outpatient (RCR) | payer SELFPAY ==
[2025-03-22 00:18] VITALS: BP 133/82; PULSE 85
[2025-03-22 14:17] VITALS: BP 128/76; PULSE 66
[2025-03-27 15:32] VITALS: BP 148/78; PULSE 68
[2025-03-29 14:27] VITALS: BP 149/73; PULSE 64
[2025-04-03 14:31] VITALS: BP 115/73; PULSE 78
[2025-04-05 14:11] VITALS: BP 126/74; PULSE 72
[2025-04-10 14:20] VITALS: BP 125/69; PULSE 71
[2025-04-12 14:53] VITALS: BP 122/73; PULSE 73
[2025-04-17 14:07] VITALS: BP 122/82; PULSE 71
[2025-04-19 15:40] VITALS: BP 122/72; PULSE 72
== END 2025-04-21 23:59 | disposition home or self-care (01) ==
LOC: CR 14:00
PROVIDERS: PCP Nurse Practitioner Family; Visit Provider Internal Medicine Cardiovascular Disease
DX: R69 Illness, unspecified (principal)

== ENCOUNTER 2025-05-17 14:00 | Outpatient (RCR) | payer SELFPAY ==
[2025-04-22 00:10] VITALS: BP 133/82; PULSE 85
[2025-04-24 14:34] VITALS: BP 121/74; PULSE 74
[2025-04-26 14:08] VITALS: BP 127/73; PULSE 75
[2025-05-01 14:30] VITALS: BP 134/69; PULSE 64
[2025-05-03 14:31] VITALS: BP 148/79; PULSE 68
[2025-05-08 14:57] VITALS: BP 136/78; PULSE 67
[2025-05-15 14:45] VITALS: BP 139/84; PULSE 69
[2025-05-17 14:00] VITALS: BP 140/79; PULSE 63
== END 2025-05-21 23:59 | disposition home or self-care (01) ==
LOC: CR 14:00
PROVIDERS: PCP Nurse Practitioner Family; Visit Provider Internal Medicine Cardiovascular Disease
DX: R69 Illness, unspecified (principal)

== ENCOUNTER 2025-06-21 14:00 | Outpatient (RCR) | payer SELFPAY ==
[2025-05-22 16:04] VITALS: BP 123/73; PULSE 65
[2025-05-24 14:28] VITALS: BP 147/77; PULSE 64; O2SAT 95
[2025-05-29 14:13] VITALS: BP 140/77; PULSE 63
[2025-05-31 14:36] VITALS: BP 153/81; PULSE 68
[2025-06-05 14:15] VITALS: BP 139/81; PULSE 67
[2025-06-07 14:06] VITALS: BP 125/77; PULSE 72; O2SAT 95
[2025-06-14 14:22] VITALS: BP 136/79; PULSE 68
[2025-06-19 14:50] VITALS: BP 126/71; PULSE 68
[2025-06-21 14:19] VITALS: BP 128/70; PULSE 69
== END 2025-06-21 23:59 | disposition home or self-care (01) ==
LOC: CR 14:00
PROVIDERS: PCP Nurse Practitioner Family; Visit Provider Internal Medicine Cardiovascular Disease
DX: R69 Illness, unspecified (principal)

== ENCOUNTER 2025-06-28 14:00 | Outpatient (RCR) | payer SELFPAY ==
[2025-06-22 00:24] VITALS: BP 128/70; PULSE 69
[2025-06-26 14:18] VITALS: BP 120/71; PULSE 74
[2025-06-28 14:20] VITALS: BP 123/74; PULSE 72
== END 2025-07-22 23:59 | disposition home or self-care (01) ==
LOC: CR 14:00
PROVIDERS: PCP Nurse Practitioner Family; Visit Provider Internal Medicine Cardiovascular Disease
DX: R69 Illness, unspecified (principal)

== ENCOUNTER 2025-08-21 14:00 | Outpatient (RCR) | payer SELFPAY ==
[2025-07-24 14:21] VITALS: BP 132/81; PULSE 65
[2025-07-26 14:20] VITALS: BP 130/74; PULSE 72
[2025-07-31 14:30] VITALS: BP 128/70; PULSE 66
[2025-08-02 14:12] VITALS: BP 134/79; PULSE 64
[2025-08-07 14:11] VITALS: BP 118/71; PULSE 81
[2025-08-09 14:55] VITALS: BP 141/46; PULSE 64
[2025-08-14 14:31] VITALS: BP 143/75; PULSE 65
[2025-08-21 14:42] VITALS: BP 145/76; PULSE 64
== END 2025-08-21 23:59 | disposition home or self-care (01) ==
LOC: CR 14:00
PROVIDERS: PCP Nurse Practitioner Family; Visit Provider Internal Medicine Cardiovascular Disease
DX: R69 Illness, unspecified (principal)

== ENCOUNTER 2025-09-18 14:00 | Outpatient (RCR) | payer SELFPAY ==
[2025-08-23 14:40] VITALS: BP 136/77; PULSE 60
[2025-08-28 14:08] VITALS: BP 148/82; PULSE 62
[2025-09-04 14:30] VITALS: BP 119/71; PULSE 68
[2025-09-06 14:00] VITALS: BP 146/70; PULSE 58; O2SAT 97
[2025-09-11 14:57] VITALS: BP 132/77; PULSE 68
[2025-09-13 14:40] VITALS: BP 131/72; PULSE 72
[2025-09-18 14:31] VITALS: BP 136/77; PULSE 65
== END 2025-09-21 23:59 | disposition home or self-care (01) ==
LOC: CR 14:00
PROVIDERS: PCP Nurse Practitioner Family; Visit Provider Internal Medicine Cardiovascular Disease
DX: R69 Illness, unspecified (principal)

== ENCOUNTER 2025-10-16 14:00 | Outpatient (RCR) | payer SELFPAY ==
[2025-09-22 00:11] VITALS: BP 136/77; PULSE 65
[2025-09-25 14:35] VITALS: BP 133/76; PULSE 64
[2025-09-27 14:20] VITALS: BP 131/77; PULSE 68
[2025-10-04 14:34] VITALS: BP 136/79; PULSE 63
[2025-10-09 14:07] VITALS: BP 143/75; PULSE 92
[2025-10-11 14:11] VITALS: BP 128/77; PULSE 67
[2025-10-16 14:17] VITALS: BP 144/78; PULSE 68
== END 2025-10-21 23:59 | disposition home or self-care (01) ==
LOC: CR 14:00
PROVIDERS: PCP Nurse Practitioner Family; Visit Provider Internal Medicine Cardiovascular Disease
DX: R69 Illness, unspecified (principal)